=== PATIENT | female | born 1945 | race Caucasian/White ===

== ENCOUNTER 2016-12-25 17:13 | Observation (INO) | payer MEDICARE, BC ==
[~2016-12-25] VITALS: Ht 170.2 cm; Wt 70.0 kg
[~2016-12-25 17:13] MED LIST: DIAZ10TA PO; EFFE150C PO; FEXO180T PO; ISOS60 PO; LEVO112T2 PO; PLAV75TA PO; STOO100C PO; TAB-TAB PO
[2016-12-25 17:16] VITALS: BP 132/76; PULSE 75; RESP 14; TEMP 98; O2SAT 95
[2016-12-25 17:33] VITALS: O2SAT 96
[2016-12-25 17:43] VITALS: O2SAT 97
[2016-12-25] MEDS ORDERED: SODIUM CHLORIDE 0.9% FLUSH 10 ML FLUSH IVF PRN (17:45)
[2016-12-25 17:47] LABS: BASOPHIL % 0.1 % (0.0-2.0); EOSINOPHIL # 0.2 TH/MM3 (0-0.4); EOSINOPHIL % 5.2 % (0.0-4.0); HEMATOCRIT 37.1 % (35.0-46.0); HEMO FLAGS DIFF FINAL; LYMPH % 34.9 % (9.0-44.0); LYMPHOCYTE # 1.5 TH/MM3 (1.0-4.8); MEAN CELL VOLUME 84.2 FL (80.0-100.0); MEAN CORPUSCULAR HEMOGLOBIN 29.3 PG (27.0-34.0); MEAN CORPUSCULAR HGB CONC 34.8 % (32.0-36.0); MONO % 13.8 % (0.0-8.0); PLATELET COUNT 221 TH/MM3 (150-450); RED CELL DISTRIBUTION WIDTH 13.5 % (11.6-17.2); WHITE BLOOD COUNT 4.4 TH/MM3 (4.0-11.0)
--- NOTE | 2016-12-25 17:58 | RADRPT ---
EXAM DATE/TIME: 12/25/2016 17:40 [place] COMPARISON: No previous studies available for comparison. INDICATIONS : Abdominal pain after possible overdose. MEDICAL HISTORY : None. SURGICAL HISTORY : None. ENCOUNTER: Initial ACUITY: 1 day PAIN SCORE: 4/10 LOCATION: Bilateral abdomen FINDINGS: Supine view of the abdomen was performed. The abdominal bowel gas pattern is normal. No abnormal ma sses, calcifications, or organomegaly is seen. The osseous structures are unremarkable. CONCLUSION: Benign-appearing abdomen. Guillaume Samano MD on December 25, 2016 at 17:56 Board Certified Radiologist. This report was verified electronically.
[2016-12-25 18:00] LABS: APTT (PATIENT) 29.6 SEC (24.3-30.1); PROTHROMBIN TIME - PATIENT 11.2 SEC (9.8-11.6)
[2016-12-25 18:10] LABS: ANION GAP 10 MEQ/L (5-15)
--- NOTE | 2016-12-25 18:10 | PD ---
HPI Chief Complaint: OD/ Ingestion Time Seen by Provider: 17:24 Travel History International Travel<30 days: No Contact w/Intl Traveler<30days: No Traveled to known affect area: No History of Present Illness HPI 71yo F with PMH of depression here with suicidal attempt by overdosing on valium. Pt states she took about 202 pills of valium 10mg PO at 3pm today. However, pt is awake and talking and following commands. Pt's RR is 20 with normal CO2. O2 sat is 95% on RA. Pt placed on personnel monitor and end tidal CO2 continuous monitoring. No focal neurologic deficits. No signs of trauma. PFSH Past Medical History Anxiety: Yes Depression: Yes Cardiac Catheterization: Yes (4 STENTS) Cardiovascular Problems: Yes ([place]) High Cholesterol: Yes Coronary Artery Disease: Yes Diabetes: No Diminished Hearing: No Hypertension: Yes (GENERALLY NOT HIGH, UNMEDICATED) Musculoskeletal: Yes (L1 COMPRESSION FX-SACRUM FX- FROM FALL) Psychiatric: Yes Myocardial Infarction: Yes (AT 40 YO) Thyroid Disease: Yes ?: Not Menopausal: Yes : 3 Para: 3 Tubal Ligation: Yes (PRIOR TO HYSTERECTOMY) Past Surgical History Abdominal Surgery: Yes (HERNIA) Appendectomy: Yes Coronary Stent: Yes (X4 09/07/07, 12/24/07, 05/2009) Eye Surgery: Yes (CATARACTS) Gynecologic Surgery: Yes (TUBAL;HYSTERECTOMY) Hysterectomy: Yes (APPROX 20+ YEARS AGO) Other Surgery: Yes (UMBILICAL HERNIA REPAIR) Social History Alcohol Use: Yes ("VERY LITTLE, ONCE A MONTH") Tobacco Use: No Substance Use: No Allergies-Medications (Allergen,Severity, Reaction): Coded Allergies: Aspirin (Verified Allergy, Severe, facial edema, 12/25/16) Penicillin (Verified Allergy, Severe, facial and throat edema, 12/25/16) Bee Sting (Verified Adverse Reaction, Intermediate, Swelling, 12/25/16) Diclofenac (Verified Adverse Reaction, Intermediate, 12/25/16) Erythromycin (Verified Adverse Reaction, Intermediate, itch, 12/25/16) Ibuprofen (Verified Adverse Reaction, Intermediate, itch, 12/25/16) Tetracycline (Verified Adverse Reaction, Intermediate, itch, 12/25/16) Reported Meds & Prescriptions Reported Meds & Active Scripts Active Reported Diazepam 10 mg (Diazepam) 10 Mg Tab 1 Tab PO HS Multivitamin (Multivitamins) 1 Tab Tab 1 Tab PO DAILY Plavix (Clopidogrel Bisulfate) 75 Mg Tab 75 Mg PO DAILY Imdur 60 Mg (Isosorbide Mononitrate) 60 Mg Tabcr 90 Mg PO DAILY Fexofenadine Hcl (Fexofenadine HCl) 180 Mg Tab 180 Mg PO BID Levothyroxine 112 mcg (Levothyroxine Sodium) 112 Mcg Tab 112 Mcg PO DAILY Effexor Xr (Venlafaxine HCl) 150 Mg Cap 150 Mg PO DAILY Review of Systems Except as stated in HPI: all other systems reviewed are Neg Physical Exam Narrative GENERAL:71yo F not in distress. SKIN: Focused skin assessment warm/dry. HEAD: Atraumatic. Normocephalic. EYES: Pupils equal and round. No scleral icterus. No injection or drainage. ENT: No nasal bleeding or discharge. Mucous membranes pink and moist. NECK: Trachea midline. No JVD. CARDIOVASCULAR: Regular rate and rhythm. No murmur appreciated. RESPIRATORY: No accessory muscle use. Clear to auscultation. Breath sounds equal bilaterally. GASTROINTESTINAL: Abdomen soft, diffuse ttp. No rebound tenderness or guarding. MUSCULOSKELETAL: No obvious deformities. No clubbing. No cyanosis. No edema. NEUROLOGICAL: Awake and drowsy but easily arousable. No obvious cranial nerve deficits. Motor grossly within normal limits. Normal speech. PSYCHIATRIC: Appropriate mood and affect; insight and judgment normal. Data Data Last Documented VS Vital Signs Date Time Temp Pulse Resp B/P Pulse Ox O2 Delivery O2 Flow Rate FiO2 12/25/16 17:43 97 Nasal Cannula 2 12/25/16 17:16 98.0 75 14 132/76 Orders Electrocardiogram (12/25/16 ) Complete Blood Count With Diff (12/25/16 17:31) Comprehensive Metabolic Panel (12/25/16 17:31) Prothrombin Time / Inr (Pt) (12/25/16 17:31) Act Partial Throm Time (Ptt) (12/25/16 17:31) Urinalysis - C+S If Indicated (12/25/16 17:31) Blood Glucose (12/25/16 17:31) Iv Access Insert/Monitor (12/25/16 17:31) Ecg Monitoring (12/25/16 17:31) Oximetry (12/25/16 17:31) Sodium Chloride 0.9% Flush (Ns Flush) (12/25/16 17:45) Drug Screen, Random Urine (12/25/16 17:31) Alcohol (Ethanol) (12/25/16 17:31) Salicylates (Aspirin) (12/25/16 17:31) Tylenol (Acetaminophen) (12/25/16 17:31) Psych Screen (12/25/16 17:31) Abdomen, Kub Only (12/25/16 ) Potassium Chlor 20 Meq Premix (Kcl 20 Me (12/25/16 18:45) Admit Order (Ed Use Only) (12/25/16 19:16) Labs Laboratory Tests Test 12/25/16 12/25/16 17:35 18:40 White Blood Count 4.4 TH/MM3 Red Blood Count 4.40 MIL/MM3 Hemoglobin 12.9 GM/DL Hematocrit 37.1 % Mean Corpuscular Volume 84.2 FL Mean Corpuscular Hemoglobin 29.3 PG Mean Corpuscular Hemoglobin 34.8 % Concent Red Cell Distribution Width 13.5 % Platelet Count 221 TH/MM3 Mean Platelet Volume 8.8 FL Neutrophils (%) (Auto) 46.0 % Lymphocytes (%) (Auto) 34.9 % Monocytes (%) (Auto) 13.8 % Eosinophils (%) (Auto) 5.2 % Basophils (%) (Auto) 0.1 % Neutrophils # (Auto) 2.0 TH/MM3 Lymphocytes # (Auto) 1.5 TH/MM3 Monocytes # (Auto) 0.6 TH/MM3 Eosinophils # (Auto) 0.2 TH/MM3 Basophils # (Auto) 0.0 TH/MM3 CBC Comment DIFF FINAL Differential Comment Prothrombin Time 11.2 SEC Prothromb Time International 1.0 RATIO Ratio Activated Partial 29.6 SEC Thromboplast Time Sodium Level 134 MEQ/L Potassium Level 3.0 MEQ/L Chloride Level 100 MEQ/L Carbon Dioxide Level 24.1 MEQ/L Anion Gap 10 MEQ/L Blood Urea Nitrogen 5 MG/DL Creatinine 0.83 MG/DL Estimat Glomerular Filtration 68 ML/MIN Rate Random Glucose 101 MG/DL Calcium Level 7.7 MG/DL Total Bilirubin 0.7 MG/DL Aspartate Amino Transf 24 U/L (AST/SGOT) Alanine Aminotransferase 28 U/L (ALT/SGPT) Alkaline Phosphatase 108 U/L Total Protein 6.1 GM/DL Albumin 3.1 GM/DL Salicylates Level LESS THAN 1.7 MG/DL Acetaminophen Level 3.2 MCG/ML Ethyl Alcohol Level LESS THAN 3 MG/DL Urine Color LIGHT-YELLOW Urine Turbidity CLEAR Urine pH 6.0 Urine Specific [place] 1.002 Urine Protein NEG mg/dL Urine Glucose (UA) NEG mg/dL Urine Ketones NEG mg/dL Urine Occult Blood TRACE Urine Nitrite NEG Urine Bilirubin NEG Urine Urobilinogen LESS THAN 2.0 MG/DL Urine Leukocyte Esterase NEG Urine RBC 1 /hpf Urine WBC LESS THAN 1 /hpf Microscopic Urinalysis Comment CATH-CULT NOT IND Urine Opiates Screen NEG Urine Barbiturates Screen NEG Urine Amphetamines Screen NEG Urine Benzodiazepines Screen POS Urine Cocaine Screen NEG Urine Cannabinoids Screen NEG MDM Medical Decision Making Medical Screen Exam Complete: Yes Emergency Medical Condition: Yes Interpretation(s) EKG: NSR 69bpm. No ST segment elevation or depression. QTc 439ms. QRS narrow. Differential Diagnosis Valium overdose vs. coingestion Narrative Course 71yo F with intentional valium overdose. Clinically, she is well appearing and following commands. O2 sat has been 95-97% on RA and CO2 is normal. Discussed with poison control and he does not think she took that much. Recommend supportive care and flumazenil if needed but may cause withdrawal since she is chronic user. Labs reviewed, no leukocytosis. K: 3.0 replaced with 20mEq KCl IV. Alcohol, acetaminophen, salicylate negative. UA showed no leukocyte or nitrite. CXR showed benign appearing abdomen. Discussed with Dr. Carrington and accepted to her service for observation on telemetry. Pt is pending psych evaluation. Diagnosis Primary Impression: Overdose Qualified Code: T50.902A - Overdose, intentional self-harm, initial encounter Admitting Information Admitting Physician Requests: Observation Lucy Alcantara DO December 25, 2016 18:10
[2016-12-25 18:13] LABS: ACETAMINOPHEN 3.2 MCG/ML (10.0-30.0); ALKALINE PHOSPHATASE 108 U/L (45-117); ALT (GPT) 28 U/L (10-53); AST (GOT) 24 U/L (15-37); BICARBONATE 24.1 MEQ/L (21.0-32.0); BLOOD UREA NITROGEN 5 MG/DL (7-18); CHLORIDE 100 MEQ/L (98-107); GLOMERULAR FILTRATION RATE 68 ML/MIN (>89); SODIUM (NA) 134 MEQ/L (136-145); TOTAL BILIRUBIN ADULT 0.7 MG/DL (0.2-1.0)
[2016-12-25] MEDS ORDERED: POTASSIUM CHLOR 20 MEQ PREMIX 100 ML IV ONE (18:45)
[2016-12-25 19:01] LABS: BLOOD, URINE TRACE (NEG); COMMENT (UR) CATH-CULT NOT IND; CULTURE IF INDICATED CATH CULTURE NOT IND; GLUCOSE,URINE NEG (NEG); KETONE, URINE NEG (NEG); NITRITE,URINE NEG (NEG); URINE COLOR LIGHT-YELLOW (YELLW/STRAW)
[2016-12-25 19:27] LABS: AMPHETAMINE, URINE NEG (NEG); BARBITURATES, URINE NEG (NEG); COCAINE, URINE NEG (NEG)
[2016-12-25 19:28] VITALS: BP 128/72; PULSE 65; RESP 18; O2SAT 97
--- NOTE | 2016-12-25 20:11 | HHI.HP ---
HPI Service [facility] Primary Care Physician Germaine Barakat MD Admission Diagnosis Intentional overdose Diagnoses: (1) Intentional overdose of drug in tablet form Diagnosis: Principal (2) Suicide attempt Diagnosis: Principal (3) Dehydration Diagnosis: Principal (4) Hypokalemia Diagnosis: Principal Travel History International Travel<30 Days: No Contact w/Intl Traveler <30 Da: No Traveled to Known Affected Are: No History of Present Illness This is a 71-year-old female with a PMH of Anxiety, Depression, HTN, Hyperlipidemia, CAD and Chronic Back Pain who was brought to the ER by EMS under [place] Act after Suicide Attempt w/ Intentional Overdose. Per , pt reportedly took approx 200 pills of Valium 10mg earlier this afternoon, however he states he didn't actually see patient take them. On arrival, pt awake, conversive, normal O2 sat and normal vital signs. While in ER, pt states she took "a bottle and a half" of Valium in suicide attempt. CBC unremarkable. K+ 3.0, s/p replacement in ER. GFR 68. U/a negative. Urine Drug Screen positive for Benzo. Alcohol negative. Tylenol/Salicylate negative. Review of Systems Except as stated in HPI: all other systems reviewed are Neg ROS: 14 point review of systems otherwise negative. Past Family Social History Past Medical History PMH: Anxiety, Depression, HTN, Hyperlipidemia, CAD and Chronic Back Pain Past Surgical History PAST SURGICAL HISTORY: Hysterectomy, Hernia Repair, Appendectomy, Cataract Surgery Allergies: Coded Allergies: Aspirin (Verified Allergy, Severe, facial edema, 12/25/16) Penicillin (Verified Allergy, Severe, facial and throat edema, 12/25/16) Bee Sting (Verified Adverse Reaction, Intermediate, Swelling, 12/25/16) Diclofenac (Verified Adverse Reaction, Intermediate, 12/25/16) Erythromycin (Verified Adverse Reaction, Intermediate, itch, 12/25/16) Ibuprofen (Verified Adverse Reaction, Intermediate, itch, 12/25/16) Tetracycline (Verified Adverse Reaction, Intermediate, itch, 12/25/16) Family History PAST FAMILY HISTORY: Reviewed. No h/o DM or CAD Social History PAST SOCIAL HISTORY: Negative for alcohol, tobacco or drugs. Physical Exam Vital Signs Vital Signs Date Time Temp Pulse Resp B/P Pulse Ox O2 Delivery O2 Flow Rate FiO2 12/25/16 19:28 65 18 128/72 97 Nasal Cannula 2 12/25/16 17:43 97 Nasal Cannula 2 12/25/16 17:33 96 12/25/16 17:23 97 Nasal Cannula 2 12/25/16 17:16 98.0 75 14 132/76 95 Physical Exam PE: GENERAL: Middle-aged white female in no acute distress. Drowsy but awake, easily arousable, answering questions HEENT: PERRLA, EOMI. No scleral icterus or conjunctival pallor. No lid lag or facial droop. CARDIOVASCULAR: Regular rate and rhythm. No obvious murmurs to auscultation. No chest tenderness to palpation. RESPIRATORY: No obvious rhonchi or wheezing. Clear to auscultation. Breath sounds equal bilaterally. GASTROINTESTINAL: Abdomen soft, non-tender, nondistended. BS normal. MUSCULOSKELETAL: Extremities without clubbing, cyanosis, or edema. No obvious deformities. NEUROLOGICAL: Awake, alert and oriented x4. No focal neurologic deficits. Moving both upper and lower extremities spontaneously. Laboratory Laboratory Tests Test 12/25/16 12/25/16 17:35 18:40 White Blood Count 4.4 Red Blood Count 4.40 Hemoglobin 12.9 Hematocrit 37.1 Mean Corpuscular Volume 84.2 Mean Corpuscular Hemoglobin 29.3 Mean Corpuscular Hemoglobin 34.8 Concent Red Cell Distribution Width 13.5 Platelet Count 221 Mean Platelet Volume 8.8 Neutrophils (%) (Auto) 46.0 Lymphocytes (%) (Auto) 34.9 Monocytes (%) (Auto) 13.8 Eosinophils (%) (Auto) 5.2 Basophils (%) (Auto) 0.1 Neutrophils # (Auto) 2.0 Lymphocytes # (Auto) 1.5 Monocytes # (Auto) 0.6 Eosinophils # (Auto) 0.2 Basophils # (Auto) 0.0 CBC Comment DIFF FINAL Differential Comment Prothrombin Time 11.2 Prothromb Time International 1.0 Ratio Activated Partial 29.6 Thromboplast Time Sodium Level 134 Potassium Level 3.0 Chloride Level 100 Carbon Dioxide Level 24.1 Anion Gap 10 Blood Urea Nitrogen 5 Creatinine 0.83 Estimat Glomerular Filtration 68 Rate Random Glucose 101 Calcium Level 7.7 Total Bilirubin 0.7 Aspartate Amino Transf 24 (AST/SGOT) Alanine Aminotransferase 28 (ALT/SGPT) Alkaline Phosphatase 108 Total Protein 6.1 Albumin 3.1 Salicylates Level LESS THAN 1.7 Acetaminophen Level 3.2 Ethyl Alcohol Level LESS THAN 3 Urine Color LIGHT-YELLOW Urine Turbidity CLEAR Urine pH 6.0 Urine Specific [place] 1.002 Urine Protein NEG Urine Glucose (UA) NEG Urine Ketones NEG Urine Occult Blood TRACE Urine Nitrite NEG Urine Bilirubin NEG Urine Urobilinogen LESS THAN 2.0 Urine Leukocyte Esterase NEG Urine RBC 1 Urine WBC LESS THAN 1 Microscopic Urinalysis Comment CATH-CULT NOT IND Urine Opiates Screen NEG Urine Barbiturates Screen NEG Urine Amphetamines Screen NEG Urine Benzodiazepines Screen POS Urine Cocaine Screen NEG Urine Cannabinoids Screen NEG Result Diagram: 12/25/16173412/25/161734 Assessment and Plan Problem List: (1) Intentional overdose of drug in tablet form ICD Code: T50.902A Status: Acute (2) Suicide attempt ICD Code: T14.91 Status: Acute (3) Dehydration ICD Code: E86.0 Status: Acute (4) Hypokalemia ICD Code: E87.6 Status: Acute Assessment and Plan A/P: 1. Intentional Overdose: reports pt took approx 200 tablets of Valium 10mg earlier this afternoon, however he did not witness ingestion. Highly unlikely based on pt's presentation, she is awake/alert, conversive, normal vitals and normal O2 sat. Admit for Observation, telemetry, Neuro checks q4h. 2. Suicide Attempt: h/o Anxiety/Depression, reports intentional ingestion of Valium in suicide attempt, currently under [place] Act. Sitter. Consult Psych for further eval. 3. Dehydration: GFR 68, U/a negative, IVF for hydration, repeat labs in am. 4. Hypokalemia: K+ 3.0, s/p replacement in ER, will recheck in am and replace as needed. 5. DVT Prophylaxis: SCD/Teds. 6. Social work for d/c planning as needed. 7. Case discussed w/ ER physician at length. Faviola Carrington MD December 25, 2016 20:11
[2016-12-25] MEDS ORDERED: BISACODYL 10 MG SUPP RECTAL PRN (20:15)
[2016-12-25] MEDS ORDERED: ONDANSETRON HCL 4 MG/2 ML VIAL IVP PRN (20:15)
[2016-12-25] MEDS ORDERED: ACETAMINOPHEN 325 MG TAB PO PRN (20:15)
[2016-12-25] MEDS ORDERED: SODIUM CHLORIDE 0.9% FLUSH 10 ML FLUSH IV FLUSH PRN (20:15)
[2016-12-25] MEDS: SODIUM CHLOR 0.9% 1000 ML INJ 1,000 ML IV SCH (20:40)
[2016-12-25] MEDS: SODIUM CHLORIDE 0.9% FLUSH 10 ML FLUSH IV FLUSH SCH (21:00)
[2016-12-25 21:47] VITALS: BP 163/86; PULSE 75; RESP 18; O2SAT 99
[2016-12-25 22:00] VITALS: PULSE 69
[2016-12-26] MEDS ORDERED: FAMOTIDINE 20 MG TAB PO ONE (00:30)
[2016-12-26 03:20] VITALS: BP 127/68; PULSE 60; RESP 16; TEMP 98.3; O2SAT 91
[2016-12-26 05:54] LABS: AUTOMATED NEUTROPHIL # 1.7 TH/MM3 (1.8-7.7); BASOPHIL % 0.4 % (0.0-2.0); EOSINOPHIL # 0.2 TH/MM3 (0-0.4); HEMATOCRIT 39.6 % (35.0-46.0); HEMO FLAGS DIFF FINAL; LYMPH % 36.5 % (9.0-44.0); LYMPHOCYTE # 1.5 TH/MM3 (1.0-4.8); MEAN CELL VOLUME 84.7 FL (80.0-100.0); MEAN CORPUSCULAR HEMOGLOBIN 29.7 PG (27.0-34.0); MONO % 15.7 % (0.0-8.0); NEUT % 42.4 % (16.0-70.0); PLATELET COUNT 228 TH/MM3 (150-450); RED BLOOD COUNT 4.68 MIL/MM3 (4.00-5.30); RED CELL DISTRIBUTION WIDTH 13.7 % (11.6-17.2)
[2016-12-26 06:31] LABS: ALT (GPT) 30 U/L (10-53); ANION GAP 7 MEQ/L (5-15); AST (GOT) 26 U/L (15-37); BICARBONATE 25.7 MEQ/L (21.0-32.0); BLOOD UREA NITROGEN 5 MG/DL (7-18); CHLORIDE 107 MEQ/L (98-107); GLOMERULAR FILTRATION RATE 71 ML/MIN (>89); POTASSIUM 3.3 MEQ/L (3.5-5.1); SODIUM (NA) 140 MEQ/L (136-145)
[2016-12-26 06:33] LABS: ALKALINE PHOSPHATASE 108 U/L (45-117); TOTAL BILIRUBIN ADULT 0.6 MG/DL (0.2-1.0)
[2016-12-26] MEDS: SODIUM CHLOR 0.9% 1000 ML INJ 1,000 ML IV SCH ×2 (07:19→20:41)
[2016-12-26 08:04] VITALS: BP 128/63; PULSE 68; RESP 18; TEMP 97.7; O2SAT 97
[2016-12-26] MEDS ORDERED: DIAZ10TA PO (08:46)
[2016-12-26] MEDS ORDERED: DIAZ2TAB PO (08:46)
[2016-12-26] MEDS ORDERED: FEXO180T PO (08:46)
[2016-12-26] MEDS ORDERED: PLAV75TA29 PO (08:46)
[2016-12-26] MEDS ORDERED: POTASSIUM CHLORIDE 20 MEQ CONTROLLED RELEASE TAB PO ONE (09:00)
[2016-12-26] MEDS ORDERED: VENL150C39 PO (09:13)
[2016-12-26] MEDS ORDERED: NITR1SUB3 SL (09:13)
[2016-12-26] MEDS ORDERED: ISOS60TA PO ×2 (09:13→10:32)
[2016-12-26] MEDS ORDERED: ISOS30TA3 PO ×2 (09:13→10:33)
[2016-12-26] MEDS ORDERED: MULTTAB67 PO (09:13)
[2016-12-26] MEDS ORDERED: LEVO100T5 PO (09:13)
[2016-12-26] MEDS ORDERED: NYST1000 SWISH-SWAL (09:15)
[2016-12-26] MEDS: SODIUM CHLORIDE 0.9% FLUSH 10 ML FLUSH IV FLUSH SCH ×2 (09:46→20:40)
[2016-12-26] MEDS: FAMOTIDINE 20 MG TAB PO SCH ×2 (09:46→20:41)
--- NOTE | 2016-12-26 10:20 | HHI.PR ---
Subjective Remarks Follow up for intentional overdose with suicide attempt. Patient very drowsy this morning however does awaken for conversation. at bedside, confirms all the tablets of Valium were missing from the 2 bottles which contained ~170 in one bottle, and ~30 in the other. The patient admits to feeling depressed recently but does not further elaborate. The patient complains of multiple episodes of diarrhea overnight and mild diffuse abdominal pain described as cramping. The patient and explain that the patient was on Clindamycin for a dental abscess at the end of November then subsequently developed abdominal problems that she has not fully recovered from. She reports diffuse abdominal "soreness" and cramping over the past few weeks, with decreased appetite, and occasional nonbloody diarrhea. No nausea/ vomiting. The diarrhea overnight is not new for her but it is worse than it has been. She saw Dr. Tucker for the first time last week who ordered some labs and wanted to see her back in 3 weeks. She has been taking imodium at home without any relief. She is not aware if she was ever checked for Cdiff and has no hx of Cdiff. Currently the patient is hungry and wants to try to eat. She has no other medical complaints. Objective Vitals Vital Signs Date Time Temp Pulse Resp B/P Pulse Ox O2 Delivery O2 Flow Rate FiO2 12/26/16 08:04 97.7 68 18 128/63 97 12/26/16 03:20 98.3 60 16 127/68 91 12/25/16 22:00 69 12/25/16 21:47 75 18 163/86 99 12/25/16 19:28 65 18 128/72 97 Nasal Cannula 2 12/25/16 17:43 97 Nasal Cannula 2 12/25/16 17:33 96 12/25/16 17:23 97 Nasal Cannula 2 12/25/16 17:16 98.0 75 14 132/76 95 Result Diagram: 12/26/16 0536 12/26/16 0536 Imaging Last Impressions Abdomen X-Ray 12/25/16 0000 Signed Impressions: Service Date/Time: Sunday, December 25, 2016 17:40 - CONCLUSION: Benign-appearing abdomen. Guillaume Samano MD Objective Remarks GENERAL: Well-nourished, well-developed female patient in NAD. Drowsy. SKIN: Warm and dry. No rash. HEENT: Normocephalic. Atraumatic.Pupils equal and round. Mucous membranes pink and moist. NECK: Supple. Trachea midline. CARDIOVASCULAR: Regular rate and rhythm. S1, S2 noted. No murmur appreciated. RESPIRATORY: No accessory muscle use. Clear to auscultation. Breath sounds equal bilaterally. GASTROINTESTINAL: Abdomen soft, nondistended, mild diffuse TTP. Normoactive bowel sounds x4. MUSCULOSKELETAL: No obvious deformities. Extremities without clubbing, cyanosis , or edema. NEUROLOGICAL: Awake and alert. No obvious cranial nerve deficits. Motor grossly within normal limits. Normal speech. PSYCHIATRIC: Depressed mood; insight and judgment normal. Medications and IVs Current Medications Medications (Trade) Dose Ordered Sig/Ammon Route Start Time Stop Time Status Last Admin (NS 1000 ml Inj) 1,000 ml @ 100 mls/hr Q10H IV 12/25/16 20:10 12/26/16 07:19 (NS Flush) 2 ml UNSCH PRN IV FLUSH 12/25/16 20:15 (NS Flush) 2 ml BID IV FLUSH 12/25/16 21:00 12/26/16 09:46 (Zofran Inj) 4 mg Q6H PRN IVP 12/25/16 20:15 (Dulcolax Supp) 10 mg DAILY PRN RECTAL 12/25/16 20:15 (Tylenol) 650 mg Q6H PRN PO 12/25/16 20:15 (Pepcid) 20 mg BID PO 12/26/16 09:00 12/26/16 09:46 A/P Problem List: (1) Intentional overdose of drug in tablet form ICD Code: T50.902A Status: Acute (2) Suicide attempt ICD Code: T14.91 Status: Acute (3) Dehydration ICD Code: E86.0 Status: Acute (4) Hypokalemia ICD Code: E87.6 Status: Acute Assessment and Plan 71-year-old female with a PMH of Anxiety, Depression, HTN, Hyperlipidemia, CAD and Chronic Back Pain who was brought to the ER by EMS under [place] Act after Suicide Attempt w/ Intentional Overdose. Per , pt reportedly took approx 200 pills of Valium 10mg earlier this afternoon, however he states he didn't actually see patient take them. Intentional Overdose: reports pt took approx 200 tablets of Valium 10mg earlier this afternoon, however he did not witness ingestion. Highly unlikely based on pt's presentation, she is awake/alert, conversive, normal vitals and normal O2 sat. Admitted for Observation, monitor on telemetry, Neuro checks q4h. Suicide Attempt: h/o Anxiety/Depression, reports intentional ingestion of Valium in suicide attempt, currently under [place] Act. Sitter. Consult Psych for further eval. Diarrhea/Abdominal Pain: ongoing x3 weeks since taking Clindamycin abx as outpatient for dental infection. Abdominal Xray images reviewed, shows benign appearing abdomen. Check Cdiff and stool cultures. Continue IVF. Antiemetics prn. Dehydration: GFR 68, suspect secondary to recent diarrhea. U/a negative. Give IVF for hydration, repeat labs today show minimal improvement. Continue to monitor. Hypokalemia: K+ 3.0, s/p replacement in ER. Repeat K 3.3, given additional KCl replacement. Repeat BMP in am. CAD: chronic, continue patient's plavix and imdur. Monitor on telemetry. DVT Prophylaxis: SCD/Teds. Discharge Planning Will likely medically clear tomorrow if patient is more awake, alert, and if GI symptoms improve. Awaiting psychiatric evaluation. Akua Delatorre PA-C December 26, 2016 10:20
[2016-12-26] MEDS: CLOPIDOGREL 75 MG TAB PO SCH (11:23)
[2016-12-26] MEDS: LORATADINE 10 MG TAB PO SCH (11:25)
[2016-12-26] MEDS: ISOSORBIDE MONONITRATE 30 MG TAB PO SCH (11:26)
[2016-12-26] MEDS: VENLAFAXINE HCL XR 75 MG CAP PO SCH (11:26)
[2016-12-26 11:45] VITALS: BP 135/61; PULSE 65; RESP 18; TEMP 98.4; O2SAT 93
--- NOTE | 2016-12-26 13:10 | EKG ---
Date Performed: 12/25/2016 Time Performed: 17:25:09 PTAGE: 71 years EKG: Sinus rhythm LOW QRS VOLTAGE IN PRECORDIAL LEADS NONSPECIFIC ST & T-WAVE ABNORMALITY BORDERLINE ECG Compared to p rior tracing no significant change PREVIOUS TRACING : 05/06/2016 10.58 DOCTOR: Saul Gutierrez Interpretating Date/Time 12/26/2016 13:09:06
--- NOTE | 2016-12-26 13:33 | PD.CONS ---
Provisional Diagnosis Admission Date December 25, 2016 at 19:17 [place] I. Major depressive disorder, recurrent, severe, without psychosis [place] II. Deferred [place] III. CAD, hypothyroidism History of Present Illness Service Psychiatry Consult Requested By Primary Care Physician Germaine Barakat MD HPI The patient is a 71-year-old woman, domicile with her in [place], retired, with psychiatric history of depression, anxiety, about 4 previous psychiatric hospitalizations, last hospitalization was here at [facility] in 2010 under the care of Dr. Lofton, documentation was reviewed, 1 previous suicide attempt by overdosing with Tylenol, active outpatient care with Dr. Landaverde , she has been in Effexor 150 mg, Valium 10 mg daily, medical history of HTN, Hyperlipidemia, CAD and Chronic Back Pain who was brought to the ER by EMS under [place] Act after Suicide Attempt w/ Intentional Overdose. Per , pt reportedly took approx 200 pills of Valium 10mg earlier this afternoon, however he states he didn't actually see patient take them. On arrival, pt awake, conversive, normal O2 sat and normal vital signs. While in ER, pt states she took "a bottle and a half" of Valium in suicide attempt. CBC unremarkable. K+ 3.0, s/p replacement in ER. GFR 68. U/a negative. Urine Drug Screen positive for Benzo. Alcohol negative. Tylenol/Salicylate negative. On psychiatric evaluation today patient is too sedated to offer any meaningful information for the psychiatric assessment. However, her Stu Pelaez, at bedside was able to provide very useful collateral information. He says that the patient overdosed seriously with approximately 200 pills of Valium. He says that he controls her medication and she was recently prescribed with 130 pills of Valium , plus she had more than 30 left in another bottle. He doesn't think that she is abusing her medication, and she takes them as prescribed. He says that the patient has been depressed in the last months, he cannot identify a reason for this depression. He says that she has been very sad, pessimistic, melancholic, catastrophic. He cannot identify an acute stressor or a reason for the patient to be this way. He says that she recently has been repeating that she lost anton in the future. Review of Systems ROS Limitations: Uncooperative Past Family Social History Coded Allergies: Aspirin (Verified Allergy, Severe, facial edema, 12/25/16) Penicillin (Verified Allergy, Severe, facial and throat edema, 12/25/16) Bee Sting (Verified Adverse Reaction, Intermediate, Swelling, 12/25/16) Diclofenac (Verified Adverse Reaction, Intermediate, 12/25/16) Erythromycin (Verified Adverse Reaction, Intermediate, itch, 12/25/16) Ibuprofen (Verified Adverse Reaction, Intermediate, itch, 12/25/16) Tetracycline (Verified Adverse Reaction, Intermediate, itch, 12/25/16) Reported Medications Isosorbide Mononitrate ER 30 Mg Taber90 Mg PO DAILY #30 TAB Ref 0 12/26/16 Nystatin Liq 100,000 unit/ml Susp5 Ml SWISH-SWAL QID Ref 0 12/26/16 Nitroglycerin SL 0.4 Mg Subl0.4 Mg SL DIRECTED PRN (CHEST PAIN) #100 TAB.SL Ref 0 ONE TABLET UNDER THE TONGUE NEEDED FOR CHEST PAIN, MAY REPEAT EVERY FIVE MINUTES FOR A TOTAL OF 3 DOSES OR CALL 911 IF NO RELIEF 12/26/16 Venlafaxine ER 24 HR 150 Mg Xtq145 Mg PO DAILY #30 CAP Ref 0 12/26/16 Multiple Vitamin 1 Tab1 Tab PO DAILY Ref 0 12/26/16 Levothyroxine 100 Mcg Gbf414 Mcg PO DAILY #30 TAB Ref 0 12/26/16 Fexofenadine 180 Mg Sbt544 Mg PO DAILY #30 TAB Ref 0 12/26/16 Clopidogrel (Plavix)75 Mg Tab75 Mg PO DAILY #30 TAB Ref 0 12/26/16 Diazepam 10 Mg Tab10 Mg PO HS PRN (SLEEP) Ref 0 12/26/16 Diazepam 2 Mg Tab2 Mg PO BID PRN (ANXIETY) Ref 0 12/26/16 Discontinued Reported Medications Docusate Sodium (Colace)100 Mg Fmk206 Mg PO BID 05/06/16 Current Medications Medications (Trade) Dose Ordered Sig/Ammon Route Start Time Stop Time Status Last Admin (NS 1000 ml Inj) 1,000 ml @ 100 mls/hr Q10H IV 12/25/16 20:10 12/26/16 07:19 (NS Flush) 2 ml UNSCH PRN IV FLUSH 12/25/16 20:15 (NS Flush) 2 ml BID IV FLUSH 12/25/16 21:00 12/26/16 09:46 (Zofran Inj) 4 mg Q6H PRN IVP 12/25/16 20:15 (Dulcolax Supp) 10 mg DAILY PRN RECTAL 12/25/16 20:15 (Tylenol) 650 mg Q6H PRN PO 12/25/16 20:15 (Pepcid) 20 mg BID PO 12/26/16 09:00 12/26/16 09:46 (Plavix) 75 mg DAILY PO 12/26/16 10:45 12/26/16 11:23 (Imdur) 90 mg DAILY@07 PO 12/26/16 10:45 12/26/16 11:26 (Synthroid) 100 mcg DAILY@06 PO 12/27/16 06:00 (Mycostatin Liq) 5 ml QID SWISH-SWAL 12/26/16 13:00 (Effexor Xr) 150 mg DAILY PO 12/26/16 10:45 12/26/16 11:26 (Claritin) 10 mg DAILY PO 12/26/16 10:45 12/26/16 11:25 Family History Her father was an alcoholic Social History Patient was born and raised in [place], she lives in [place] with , she is retired, she has 3 kids, she used to be a teacher for some time, 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 2) Family support Physical Exam On physical exam patient is sedated, mumbling words, Vital Signs Vital Signs Date Time Temp Pulse Resp B/P Pulse Ox O2 Delivery O2 Flow Rate FiO2 12/26/16 11:45 98.4 65 18 135/61 93 12/25/16 19:28 Nasal Cannula 2 Lab Results Toxicology positive for benzodiazepines BAL negative Mental Status Examination Appearance woman, age appearing, [facility], good hygiene, sedated, non- cooperative Assessment & Plan Problem List: (1) Major depressive disorder, recurrent severe without psychotic features Assessment & Plan: On psychiatric evaluation patient is too sedated to cooperate with meaningful information for the psychiatric assessment. However her uses for collateral information reports the patient overdosed with over 100 pills of diazepam with the intention to . As per patient has been progressively and increasingly depressed, with persistent hopelessness , catastrophic thinking, generalized pessimism. The most important step right now is to continue medical aggressive treatment and to stabilize the patient medically. But, patient will need psychiatric hospitalization for stabilization and safety. Please keep one-to-one sitter in medical floor. Patient could be also transfer to med psych unit, if available beds. No psychotropics at this moment. [facility] protocol for potential benzodiazepine withdrawal. ICD Code: F33.2 Assessment & Plan Estimated LOS: days Dandy Rodrigez MD December 26, 2016 13:33
[2016-12-26] MEDS: NYSTATIN SUSP 500,000 U/5 ML CUP SWISH-SWAL SCH ×3 (14:28→20:41)
[2016-12-26 15:07] VITALS: BP 125/72; PULSE 71; RESP 16; TEMP 96.8; O2SAT 98
[2016-12-26 20:00] VITALS: PULSE 78
[2016-12-26 21:01] VITALS: BP 124/68; PULSE 67; RESP 18; TEMP 97.8; O2SAT 98
[2016-12-27 00:02] VITALS: BP 133/63; PULSE 61; RESP 18; TEMP 98.4; O2SAT 99
[2016-12-27 04:34] VITALS: BP 128/66; PULSE 63; RESP 18; TEMP 98.5; O2SAT 100
[2016-12-27] MEDS ORDERED: LEVOTHYROXINE SODIUM 100 MCG TAB PO SCH (06:00)
[2016-12-27] MEDS: SODIUM CHLOR 0.9% 1000 ML INJ 1,000 ML IV SCH ×2 (06:10→14:45)
[2016-12-27] MEDS: ISOSORBIDE MONONITRATE 30 MG TAB PO SCH (06:12)
[2016-12-27 07:55] LABS: BICARBONATE 24.6 MEQ/L (21.0-32.0); POTASSIUM 3.7 MEQ/L (3.5-5.1)
[2016-12-27 08:34] VITALS: BP 165/80; PULSE 62; RESP 18; TEMP 98.8; O2SAT 97
[2016-12-27] MEDS: FAMOTIDINE 20 MG TAB PO SCH ×2 (09:38→21:00)
[2016-12-27] MEDS: SODIUM CHLORIDE 0.9% FLUSH 10 ML FLUSH IV FLUSH SCH ×2 (09:38→21:00)
[2016-12-27] MEDS: LORATADINE 10 MG TAB PO SCH (09:39)
[2016-12-27] MEDS: NYSTATIN SUSP 500,000 U/5 ML CUP SWISH-SWAL SCH ×4 (09:39→21:00)
[2016-12-27] MEDS: VENLAFAXINE HCL XR 75 MG CAP PO SCH (09:39)
[2016-12-27] MEDS: CLOPIDOGREL 75 MG TAB PO SCH (09:39)
--- NOTE | 2016-12-27 09:52 | HHI.PR ---
Subjective Remarks Follow-up for intentional benzodiazepine overdose. The patient is seen with , RN, and sitter at bedside. The patient is seen eating breakfast. She has no acute complaints today. She denies any nausea. She has small normal BM yesterday. She denies any chest pain or shortness of breath. She's been able to ambulate to the bedside commode. Objective Vitals Vital Signs Date Time Temp Pulse Resp B/P Pulse Ox O2 Delivery O2 Flow Rate FiO2 12/27/16 08:34 98.8 62 18 165/80 97 12/27/16 04:34 98.5 63 18 128/66 100 12/27/16 00:02 98.4 61 18 133/63 99 12/26/16 21:01 97.8 67 18 124/68 98 12/26/16 20:00 78 12/26/16 15:07 96.8 71 16 125/72 98 12/26/16 11:45 98.4 65 18 135/61 93 I/O 12/26/16 12/26/16 12/26/16 12/27/16 12/27/16 12/27/16 07:00 15:00 23:00 07:00 15:00 23:00 # Voids 1 Result Diagram: 12/26/16 0536 12/27/16 0700 Imaging Last Impressions Abdomen X-Ray 12/25/16 0000 Signed Impressions: Service Date/Time: Sunday, December 25, 2016 17:40 - CONCLUSION: Benign-appearing abdomen. Guillaume Samano MD Objective Remarks GENERAL: Well-developed well-nourished. In no acute distress. SKIN: Warm and dry. No lesions noted. HEENT: Normocephalic. Pupils equal and round. Mucous membranes pink and moist. CARDIOVASCULAR: Regular rate and rhythm. No murmur appreciated. RESPIRATORY: No accessory muscle use. Clear to auscultation. Breath sounds equal bilaterally. GASTROINTESTINAL: Abdomen soft, non-tender, nondistended. Bowel sounds x4. MUSCULOSKELETAL: No obvious deformities. No clubbing or cyanosis. No edema. NEUROLOGICAL: Awake and alert. No focal neurological deficits. Moves upper and lower extremities spontaneously. Normal speech. PSYCHIATRIC: Labile, depressed mood and affect A/P Problem List: (1) Intentional overdose of drug in tablet form ICD Code: T50.902A Status: Acute (2) Suicide attempt ICD Code: T14.91 Status: Acute (3) Hypokalemia ICD Code: E87.6 Status: Resolved Assessment and Plan 71-year-old female with a PMH of Anxiety, Depression, HTN, Hyperlipidemia, CAD and Chronic Back Pain who was brought to the ER by EMS under [place] Act after Suicide Attempt w/ Intentional Overdose. Per , pt reportedly took approx 200 pills of Valium 10mg prior to admission, however he states he didn't actually see patient take them. Intentional Overdose: reports pt took approx 200 tablets of Valium 10mg , however he did not witness ingestion. Highly unlikely based on pt's presentation, she is awake/alert, conversive, normal vitals and normal O2 sat. Admitted for Observation, monitor on telemetry, Neuro checks q4h. Suicide Attempt: h/o Anxiety/Depression, reports intentional ingestion of Valium in suicide attempt, currently under [place] Act. Sitter. Consulted Psych who recommended inpatient psychiatry when medically cleared. Diarrhea/Abdominal Pain: ongoing x3 weeks since taking Clindamycin abx as outpatient for dental infection. Abdominal Xray reviewed, shows benign appearing abdomen. No further diarrhea, unable to check stool studies. Tolerating oral intake. Supportive care. Dehydration: GFR 68, suspect secondary to recent diarrhea. U/a negative. Given IVF for hydration. Hypokalemia: Replaced orally and now K+ 3.7. Resolved. CAD: chronic, continue patient's plavix and imdur. Monitor on telemetry. DVT Prophylaxis: SCD/Teds. Discharge Planning The patient is medically clear for discharge to inpatient psychiatry. Addendum 1200: Reportedly outpatient laboratory told the patient's that she is positive for C. difficile. Discussed with RN, we will obtain those results. Start on course of Flagyl. Patient is cleared for med psych. Cale Tao December 27, 2016 09:52
[2016-12-27] MEDS ORDERED: METR-1 PO (12:32)
[2016-12-27] MEDS ORDERED: DICYCLOMINE HCL 20 MG TAB PO PRN (14:30)
[2016-12-27] MEDS: metroNIDAZOLE 500 MG TAB PO SCH ×2 (14:42→21:00)
[2016-12-27 16:14] VITALS: BP 146/70; PULSE 67; RESP 18; TEMP 97.8; O2SAT 97
[2016-12-27 20:14] VITALS: BP 141/67; PULSE 67; RESP 17; TEMP 97.9; O2SAT 98
== END 2016-12-27 21:35 ==
LOC: NEPC 17:13 → NEDA 19:17 → NEPHCDU 21:02 → NEDA 12-27 00:48 → NEPHCDU 12-27 00:48
PROVIDERS: ADMIT Internal Medicine; ATTEND Internal Medicine
DX: T42.4X2A Poisoning by benzodiazepines, intentional self-harm, initial encounter (principal); E86.0 Dehydration; E87.6 Hypokalemia; I25.10 Atherosclerotic heart disease of native coronary artery without angina pectoris; F33.2 Major depressive disorder, recurrent severe without psychotic features; F41.9 Anxiety disorder, unspecified; I25.2 Old myocardial infarction; E78.00 Pure hypercholesterolemia, unspecified; I10 Essential (primary) hypertension; E78.5 Hyperlipidemia, unspecified; G89.29 Other chronic pain; M54.9 Dorsalgia, unspecified; R19.7 Diarrhea, unspecified; Z79.02 Long term (current) use of antithrombotics/antiplatelets; Z91.030 Bee allergy status; Z88.1 Allergy status to other antibiotic agents; Z88.6 Allergy status to analgesic agent; Z88.0 Allergy status to penicillin; Z95.5 Presence of coronary angioplasty implant and graft
CPT/HCPCS: 74000; 80048; 80053; 80307; 81001; 83735; 84443; 85025; 85610; 85730; 93005; 99285; G0378; J3480; J7030

== ENCOUNTER 2016-12-27 21:40 | Inpatient (IN) | payer MEDICARE, BC ==
[~2016-12-27] VITALS: Ht 162.6 cm; Wt 64.3 kg
[~2016-12-27 21:40] MED LIST changes: +DIAZ2TAB PO; -EFFE150C PO; +ISOS30TA3 PO; -ISOS60 PO; +LEVO100T5 PO; -LEVO112T2 PO; +METR-1 PO; +MULTTAB67 PO; +NITR1SUB3 SL; +NYST1000 SWISH-SWAL; -PLAV75TA PO; +PLAV75TA29 PO; -STOO100C PO; -TAB-TAB PO; +VENL150C39 PO
[2016-12-27 22:04] VITALS: BP 142/74; PULSE 66; RESP 18; TEMP 97.3; O2SAT 98
[2016-12-27 23:40] VITALS: BP 142/74; PULSE 66; RESP 18; TEMP 98
[2016-12-28 06:20] VITALS: BP 138/74; PULSE 75; RESP 18; TEMP 97.8; O2SAT 99
[2016-12-28 07:29] LABS: ANION GAP 9 MEQ/L (5-15); BICARBONATE 26.9 MEQ/L (21.0-32.0); BLOOD UREA NITROGEN 6 MG/DL (7-18); CHLORIDE 110 MEQ/L (98-107); GLOMERULAR FILTRATION RATE 68 ML/MIN (>89); POTASSIUM 3.6 MEQ/L (3.5-5.1); SODIUM (NA) 146 MEQ/L (136-145)
[2016-12-28 07:30] LABS: LDL CHOLESTEROL 148 MG/DL (0-99)
[2016-12-28] MEDS: LEVOTHYROXINE SODIUM 100 MCG TAB PO SCH (09:45)
[2016-12-28] MEDS ORDERED: LORazepam 2 MG TAB PO STA (11:17)
[2016-12-28] MEDS: VENLAFAXINE HCL XR 75 MG CAP PO SCH (11:23)
[2016-12-28] MEDS: MULTIVITAMIN TAB PO SCH (11:23)
[2016-12-28] MEDS: CLOPIDOGREL 75 MG TAB PO SCH (11:24)
[2016-12-28 12:39] LABS: HEMATOCRIT 38.4 % (35.0-46.0); PLATELET COUNT 253 TH/MM3 (150-450); REVIEW FLAG FINAL
--- NOTE | 2016-12-28 13:53 | PD.CONS ---
HPI Service [facility] Hospitalists Consult Requested By Psychiatric services Reason for Consult Medical management Primary Care Physician Germaine Barakat MD Diagnoses: History of Present Illness Written by Delia Pickering PA-C acting as scribe for Dr. Oswald on 12/28/16 at 13:34. 71-year-old female with a PMHX of Anxiety, Depression, HTN, Hyperlipidemia, CAD s/p previous CABG, Right CEA and Chronic Back Pain who was brought to the ER by EMS under [place] Act after Suicide Attempt w/ Intentional Overdose by taking 200 pills of Valium 10mg who has been admitted to psychiatric unit. Hospitalist services have been requested to assist with medical management. Per , pt reportedly took approx 200 pills of Valium 10mg, however he states he didn't actually see patient take them. Her hospital course has been unremarkable with normal O2 sats and normal vital signs. Additionally, she has had no appreciable lethargy or somnolence. Urine Drug Screen was positive for Benzo. Alcohol negative. Tylenol/Salicylate negative. Patient seen and examined today. She was recently treated with Clindamycin for dental abscess and tested positive for C Diff. She was started on Flagyl just prior to being transferred to the med/psych floor. She denies any complaints at this time and reports feeling well. She denies any fever, chills, nausea, vomiting, diarrhea, cough, shortness of breath, chest pain or abdominal pain. She does endorse chest pain when walking for more than 15 minutes. When asked why she tried to commit suicide patient reports "I am 71 years old and I'm tired of hurting". She denies any chest pain presently. Review of Systems Except as stated in HPI: all other systems reviewed are Neg Past Family Social History Allergies: Coded Allergies: Aspirin (Verified Allergy, Severe, facial edema, 01/03/17) Clindamycin (Verified Allergy, Severe, cdiff, 01/03/17) Penicillin (Verified Allergy, Severe, facial and throat edema, 01/03/17) Bee Sting (Verified Adverse Reaction, Intermediate, Swelling, 01/03/17) Diclofenac (Verified Adverse Reaction, Intermediate, 01/03/17) Erythromycin (Verified Adverse Reaction, Intermediate, itch, 01/03/17) Ibuprofen (Verified Adverse Reaction, Intermediate, itch, 01/03/17) Tetracycline (Verified Adverse Reaction, Intermediate, itch, 01/03/17) Past Medical History HTN CAD s/p CABG 2012 with recent negative cardiac catheterization in October 2016 PAD s/p right CEA Chronic back pain Depression Anxiety Hyperlipidemia Past Surgical History CABG 2012 s/p cardiac catheterization October 2016 Right CEA Hysterectomy Hernia Repair Appendectomy Cataract Surgery Reported Medications Metronidazole (Flagyl)500 Mg Iqz404 Mg PO Q8HR #30 TAB Prov:Cale Tao PA 12/27/16 Isosorbide Mononitrate ER 30 Mg Taber90 Mg PO DAILY #30 TAB Ref 0 12/26/16 Nystatin Liq 100,000 unit/ml Susp5 Ml SWISH-SWAL QID Ref 0 12/26/16 Nitroglycerin SL 0.4 Mg Subl0.4 Mg SL DIRECTED PRN (CHEST PAIN) #100 TAB.SL Ref 0 ONE TABLET UNDER THE TONGUE NEEDED FOR CHEST PAIN, MAY REPEAT EVERY FIVE MINUTES FOR A TOTAL OF 3 DOSES OR CALL 911 IF NO RELIEF 12/26/16 Venlafaxine ER 24 HR 150 Mg Esq051 Mg PO DAILY #30 CAP Ref 0 12/26/16 Multiple Vitamin 1 Tab1 Tab PO DAILY Ref 0 12/26/16 Levothyroxine 100 Mcg Ral108 Mcg PO DAILY #30 TAB Ref 0 12/26/16 Fexofenadine 180 Mg Lad553 Mg PO DAILY #30 TAB Ref 0 12/26/16 Clopidogrel (Plavix)75 Mg Tab75 Mg PO DAILY #30 TAB Ref 0 12/26/16 Active Ordered Medications Current Medications Medications (Trade) Dose Ordered Sig/Ammon Route Start Time Stop Time Status Last Admin (Plavix) 75 mg DAILY PO 12/28/16 09:45 12/28/16 11:24 (Synthroid) 100 mcg DAILY@0600 PO 12/28/16 09:45 (Effexor Xr) 150 mg DAILY PO 12/28/16 09:45 12/28/16 11:23 (Theragran) 1 tab DAILY PO 12/28/16 09:45 12/28/16 11:23 Family History Sister, CAD with previous history of stent placement Social History Patient denies any tobacco use or illicit drug use. She endorses rare alcohol consumption. Physical Exam Vital Signs Vital Signs Date Time Temp Pulse Resp B/P Pulse Ox O2 Delivery O2 Flow Rate FiO2 12/28/16 06:20 97.8 75 18 138/74 99 12/27/16 23:40 98.0 66 18 142/74 12/27/16 22:04 97.3 66 18 142/74 98 Physical Exam GENERAL: This is a well-nourished, well-developed patient, in no apparent distress. Awake and alert. SKIN: No rashes, ecchymoses or lesions. Cool and dry. HEAD: Atraumatic. Normocephalic. No temporal or scalp tenderness. EYES: Pupils equal round and reactive. Extraocular motions intact. No scleral icterus. No injection or drainage. ENT: Nose without bleeding, purulent drainage or septal hematoma. Throat without erythema, tonsillar hypertrophy or exudate. Uvula midline. Airway patent. NECK: Trachea midline. No lymphadenopathy. Supple, nontender, no meningeal signs. CARDIOVASCULAR: Regular rate and rhythm without murmurs, gallops, or rubs. RESPIRATORY: Clear to auscultation. Breath sounds equal bilaterally. No wheezes , rales, or rhonchi. GASTROINTESTINAL: Abdomen soft, non-tender, nondistended. No hepato-splenomegaly , or palpable masses. No guarding. MUSCULOSKELETAL: Extremities without clubbing, cyanosis, or edema. No joint tenderness, effusion, or edema noted. No calf tenderness. NEUROLOGICAL: Awake and alert. Able to move all extremities. No focal neurologic findings appreciated on exam. Normal speech. Laboratory Laboratory Tests Test 12/28/16 12/28/16 06:08 12:12 Sodium Level 146 Potassium Level 3.6 Chloride Level 110 Carbon Dioxide Level 26.9 Anion Gap 9 Blood Urea Nitrogen 6 Creatinine 0.83 Estimat Glomerular Filtration 68 Rate Random Glucose 96 Calcium Level 8.0 Triglycerides Level 314 Cholesterol Level 243 LDL Cholesterol 148 HDL Cholesterol 32.0 Cholesterol/HDL Ratio 7.59 Hemoglobin 13.1 Hematocrit 38.4 Platelet Count 253 Result Diagram: 12/28/16 1212 12/28/16 0608 Assessment and Plan Assessment and Plan 71-year-old female with a PMHX of Anxiety, Depression, HTN, Hyperlipidemia, CAD s/p previous CABG, Right CEA and Chronic Back Pain who was brought to the ER by EMS under [place] Act after Suicide Attempt w/ Intentional Overdose by taking 200 pills of Valium 10mg who has been admitted to psychiatric unit. Hospitalist services have been requested to assist with medical management. Depression/Anxiety/Suicide attempt with Intentional Overdose Management per psychiatric team Recent diagnosis of C Diff infection Reportedly outpatient laboratory told the patient's that she is positive for C. difficile. Resume Flagyl 500mg po q 8h Asymptomatic at present, patient denies any fever, chills, N/V, abdominal pain or diarrhea HTN/CAD/Previous CABG/PAD s/p right CEA adequate control at present continue with Plavix continue with Isosorbide Hypothyroidism Continue with Levothyroxine TSH 4.050 Free T4 1.13 TSH elevation likely due to recent illness/hospitalization recommend repeat labs in 6 weeks with PCP Hypernatremia likely secondary to dehydration GFR 69, U/a negative encourage po intake repeat labs in am. Dyslipidemia TG 314, TC 243, LDL 148, HDL 32 not on any statin patient would benefit from moderate to high intensity statin per ASCVD risk calculator will discuss initiation of statin therapy DVT Prophylaxis Encourage ambulation This note was transcribed by [email or web address] Pickering. I, Dr. Estuardo Yang personally performed the history, physical exam, and medical decision making; and confirmed the accuracy of the information in the transcribed note. Authenticated by Dr. Estuardo Yang on 12/28/16 at 13:34. Delia Pickering December 28, 2016 13:53 Estuardo Camp MD Jan 05, 2017 13:29
--- NOTE | 2016-12-28 14:38 | HHI.HP ---
Provisional Diagnosis Admission Date December 27, 2016 at 21:40 Alex I. Major depressive disorder, recurrent, without psychosis, Alex II. Deferred Alex III. COPD, HTN, hypothyroidism Certification of Person's Competence To Provide Express and Informed Consent I have personally examined Diana Pelaez , a person being served at [facility] on, December 28, 2016 14:26. Express and informed consent means consent voluntarily given in writing, by a competent person, after sufficient explanation and disclosure of the subject matter involved to enable the person to make a knowing and willful decision without any element of force, fraud, deceit, duress, or other form of constraint or coercion. This person is 18 years of age or older, is not now known to be incompetent to consent to treatment with a guardian advocate, and does not have a health care surrogate or proxy currently making medical treatment decisions. I have found this person to be one of the following: [] Competent to provide express and informed consent, as defined above, for voluntary admission to this facility and is competent to provide express and informed consent for treatment. He/she has the consistent capacity to make well reasoned, willful, and knowing decisions concerning his or her medical or mental health treatment. The person fully and consistently understands the purpose of the admission for examination/placement and is fully capable of personally exercising all rights assured [place] Incompetent to provide express and informed consent to voluntary admission, and this is incompetent to provide express and informed consent to treatment. The person must be transferred to involuntary status and a petition for a guardian advocate filed with the Circuit Court. [X] Refusing to provide express and informed consent to voluntary admission but is competent to provide express and informed consent for treatment. The person must be discharged or transferred to involuntary status. Form shall be completed within 24 hours of a person's arrival at the receiving facility and filed in the clinical record of each person: 1. Admitted on a voluntary basis 2. Permitted to provide express and informed consent to his/her own treatment 3. Allowed to transfer from involuntary to voluntary status 4. Prior to permitting a person to consent to his or her own treatment after having been previously found incompetent to consent to treatment. History of Present Illness Capacity: Has Capacity HPI The patient is a 71-year-old woman, domicile with her in [place], retired, with psychiatric history of depression, anxiety , about 4 previous psychiatric hospitalizations, last hospitalization was here at [place] in 2010 under the care of Dr. Lofton, documentation was reviewed, 1 previous suicide attempt by overdosing with Tylenol, active outpatient care with Dr. Landaverde, she has been in Effexor 150 mg, Valium 10 mg daily, medical history of HTN, Hyperlipidemia, CAD and Chronic Back Pain who was brought to the ER by EMS under Richardson Act after Suicide Attempt w/ Intentional Overdose. Per , pt reportedly took approx 200 pills of Valium 10mg earlier this afternoon, however he states he didn't actually see patient take them. On arrival, pt awake, conversive, normal O2 sat and normal vital signs. While in ER, pt states she took "a bottle and a half" of Valium in suicide attempt. CBC unremarkable. K+ 3.0, s/p replacement in ER. GFR 68. U/a negative. Urine Drug Screen positive for Benzo. Alcohol negative. Tylenol/Salicylate negative. On psychiatric evaluation today patient is too sedated to offer any meaningful information for the psychiatric assessment. However, her Stu Pelaez, at bedside was able to provide very useful collateral information. He says that the patient overdosed seriously with approximately 200 pills of Valium. He says that he controls her medication and she was recently prescribed with 130 pills of Valium, plus she had more than 30 left in another bottle. He doesn't think that she is abusing her medication, and she takes them as prescribed. He says that the patient has been depressed in the last months, he cannot identify a reason for this depression. He says that she has been very sad, pessimistic, melancholic, catastrophic. He cannot identify an acute stressor or a reason for the patient to be this way. He says that she recently has been repeating that she lost anton in the future. 12/28/2016 on psychiatric evaluation today patient reports feeling extremely anxious, very scared of being in a psychiatric unit. Patient says that she is also very sad "I'm thinking that I should by taking pills", patient says that she has been extremely overwhelmed in the last days, having frequent conflicts with her "and I feel that I am done already and there are no solutions for me". During the evaluation patient is tearful, seems to be melancholic, fragile and vulnerable. She reports suicidal ideation, but denies any plan and is able to contract for safety in the unit. Patient reports hopelessness, helplessness, decreased appetite, difficulty sleeping at night, generalized pessimism, low self-esteem, sensitivity to frustration and rejection. She is oriented 3, no attention deficit, no gross cognitive impairment present. Patient denies visual and auditory hallucinations. No agitation, no aggressive behavior present in the unit. Review of Systems Constitutional: DENIES: Diaphoretic episodes, Fatigue, Fever, Weight gain, Weight loss, Chills, Dizziness, Change in appetite, Night Sweats Endocrine: DENIES: Abnorml menstrual pattern, Heat/cold intolerance, Polydipsia , Polyuria, Polyphagia Eyes: DENIES: Blurred vision, Diplopia, Eye inflammation, Eye pain, Vision loss , Photosensitivity, Double Vision Ears, nose, mouth, throat: DENIES: Tinnitus, Hearing loss, Vertigo, Nasal discharge, Oral lesions, Throat pain, Hoarseness, Ear Pain, Running Nose, Epistaxis, Sinus Pain, Toothache, Odynophagia Respiratory: DENIES: Apneas, Cough, Snoring, Wheezing, Hemoptysis, Sputum production, Shortness of breath Cardiovascular: DENIES: Chest pain, Palpitations, Syncope, Dyspnea on Exertion , PND, Lower Extremity Edema, Orthopnea, Claudication Gastrointestinal: DENIES: Abdominal pain, Black stools, Bloody stools, Constipation, Diarrhea, Nausea, Vomiting, Difficulty Swallowing, Anorexia Genitourinary: DENIES: Abnormal vaginal bleeding, Dysmenorrhea, Dyspareunia, Sexual dysfunction, Urinary frequency, Urinary incontinence, Urgency, Hematuria , Dysuria, Nocturia, Vaginal discharge Musculoskeletal: DENIES: Joint pain, Muscle aches, Stiffness, Joint Swelling, Back pain, Neck pain Integumentary: DENIES: Abnormal pigmentation, Pruritus, Rash, Nail changes, Breast masses, Breast skin changes, Nipple discharge Hematologic/lymphatic: DENIES: Bruising, Lymphadenopathy Immunologic/allergic: DENIES: Eczema, Urticaria Neurologic: DENIES: Abnormal gait, Headache, Localized weakness, Paresthesias, Seizures, Speech Problems, Tremor, Poor Balance Psychiatric: COMPLAINS OF: Depression, Suicidal Ideation Past Psych History Violence risk - self (6 mos) Elevated risk of danger to self Substance Abuse History Drugs/Alcohol past 12 months Patient denies the use of illegal drugs and alcohol Past Family Social History Coded Allergies: Aspirin (Verified Allergy, Severe, facial edema, 12/25/16) Penicillin (Verified Allergy, Severe, facial and throat edema, 12/25/16) Bee Sting (Verified Adverse Reaction, Intermediate, Swelling, 12/25/16) Diclofenac (Verified Adverse Reaction, Intermediate, 12/25/16) Erythromycin (Verified Adverse Reaction, Intermediate, itch, 12/25/16) Ibuprofen (Verified Adverse Reaction, Intermediate, itch, 12/25/16) Tetracycline (Verified Adverse Reaction, Intermediate, itch, 12/25/16) Active Scripts Metronidazole (Flagyl)500 Mg Hiw335 Mg PO Q8HR #30 TAB Prov:Cale Tao 12/27/16 Reported Medications Isosorbide Mononitrate ER 30 Mg Taber90 Mg PO DAILY #30 TAB Ref 0 12/26/16 Nystatin Liq 100,000 unit/ml Susp5 Ml SWISH-SWAL QID Ref 0 12/26/16 Nitroglycerin SL 0.4 Mg Subl0.4 Mg SL DIRECTED PRN (CHEST PAIN) #100 TAB.SL Ref 0 ONE TABLET UNDER THE TONGUE NEEDED FOR CHEST PAIN, MAY REPEAT EVERY FIVE MINUTES FOR A TOTAL OF 3 DOSES OR CALL 911 IF NO RELIEF 12/26/16 Venlafaxine ER 24 HR 150 Mg [id number] Mg PO DAILY #30 CAP Ref 0 12/26/16 Multiple Vitamin 1 Tab1 Tab PO DAILY Ref 0 12/26/16 Levothyroxine 100 Mcg Fkd872 Mcg PO DAILY #30 TAB Ref 0 12/26/16 Fexofenadine 180 Mg Mbh211 Mg PO DAILY #30 TAB Ref 0 12/26/16 Clopidogrel (Plavix)75 Mg Tab75 Mg PO DAILY #30 TAB Ref 0 12/26/16 Discontinued Reported Medications Diazepam 10 Mg Tab10 Mg PO HS PRN (SLEEP) Ref 0 12/26/16 Diazepam 2 Mg Tab2 Mg PO BID PRN (ANXIETY) Ref 0 12/26/16 Docusate Sodium (Colace)100 Mg Put996 Mg PO BID 05/06/16 Current Medications Medications (Trade) Dose Ordered Sig/Ammon Route Start Time Stop Time Status Last Admin (Plavix) 75 mg DAILY PO 12/28/16 09:45 12/28/16 11:24 (Synthroid) 100 mcg DAILY@0600 PO 12/28/16 09:45 (Effexor Xr) 150 mg DAILY PO 12/28/16 09:45 12/28/16 11:23 (Theragran) 1 tab DAILY PO 12/28/16 09:45 12/28/16 11:23 (KlonoPIN) 0.5 mg Q12HR PO 12/28/16 21:00 Family History Her father was an alcoholic Social History Patient was born and raised in [place], she lives in [place] with , she is retired, she has 3 kids, she used to be a teacher for some time, 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 2) Family support, level of education Physical Exam A physical exam, no tremors, no EPS, no stiffness present Vital Signs Vital Signs Date Time Temp Pulse Resp B/P Pulse Ox O2 Delivery O2 Flow Rate FiO2 12/28/16 06:20 97.8 75 18 138/74 99 Mental Status Examination Appearance woman, younger than his stated age, good hygiene, [facility], fragile, superficially cooperative, tearful Speech: Hesitant, Slow Orientation: x3 Memory: Unremarkable Thought Process: Logical, Goal Directed, Linear Thought Content: Unremarkable Language Fluent and spontaneous Fund of Knowledge Adequate for level of education Hallucination Type: None Attention and Concentration: Good Suicidal Ideation: Yes Previous Suicide Attempts: Yes Homicidal Ideation: No Previous Homicide Attempts: No Insight: Good Judgment: Poor Affect: Sad Mood: Sad Motor Activity: Normal gait, Abnormal gait-specify Assessment & Plan Problem List: (1) Major depressive disorder, recurrent severe without psychotic features Assessment & Plan: Patient continues to show severe depressive symptoms and suicidal thoughts, patient feels hopeless, helpless, pessimistic, with low self- esteem, decreased appetite and level of energy, she also seems to be very fragile, melancholic vulnerable, tearful throughout the interview, endorsing suicidal thoughts without plan at this moment. Patient has recently attempted to commit suicide by overdosing with over 100 pills of diazepam. Several stressors and few protective factors identified at this moment. Patient needs to be hospitalized in psychiatry for stabilization and safety. Extensive support and psycho education provided. We'll consider psychiatric for second opinion. Consult hospitalist to continue management of medical conditions. Will consult PT and OT to help with physical rehabilitation. We'll start Effexor 150 mg for depression, clonazepam 0.5 twice a day mg for anxiety. computer networker intervention for psychosocial assessment, collateral information, group and individual therapy, coordinating safe discharge plan. ICD Code: F33.2 Assessment & Plan Estimated LOS: Dandy Rodrigez MD December 28, 2016 14:38
[2016-12-28 16:03] LABS: HEMOGLOBIN A1a 0.9 %; HEMOGLOBIN A1b 1.4 %; HEMOGLOBIN Ao 86.7 %; HEMOGLOBIN LA1C 1.8 %; HEMOGLOBIN P3 3.2 %
[2016-12-28] MEDS: ISOSORBIDE MONONITRATE 30 MG TAB PO SCH ×2 (17:30→20:59)
[2016-12-28 18:00] VITALS: BP 163/72; PULSE 73; RESP 18; TEMP 97.6; O2SAT 98
[2016-12-28] MEDS: metroNIDAZOLE 500 MG TAB PO SCH (21:00)
[2016-12-28] MEDS: clonazePAM 0.5 MG TAB PO SCH (21:00)
[2016-12-29] MEDS: metroNIDAZOLE 500 MG TAB PO SCH ×3 (06:11→21:31)
[2016-12-29] MEDS: LEVOTHYROXINE SODIUM 100 MCG TAB PO SCH (06:11)
[2016-12-29 06:18] VITALS: BP 159/78; PULSE 70; RESP 16; TEMP 97.6; O2SAT 95
[2016-12-29] MEDS: clonazePAM 0.5 MG TAB PO SCH ×2 (06:59→21:31)
--- NOTE | 2016-12-29 08:03 | PD.CONS ---
Provisional Diagnosis Admission Date December 27, 2016 at 21:40 [place] I. Major depressive disorder, recurrent, without psychosis, [place] II. Deferred [place] III. COPD, HTN, hypothyroidism History of Present Illness Service Psychiatry Consult Requested By Primary Care Physician Germaine Barakat MD [facility] The patient is a 71-year-old woman, domicile with her in [place], retired, with psychiatric history of depression, anxiety , about 4 previous psychiatric hospitalizations, last hospitalization was here at [place] in 2010 under the care of Dr. Lofton, documentation was reviewed, 1 previous suicide attempt by overdosing with Tylenol, active outpatient care with Dr. Landaverde, she has been in Effexor 150 mg, Valium 10 mg daily, medical history of HTN, Hyperlipidemia, CAD and Chronic Back Pain who was brought to the ER by EMS under Richardson Act after Suicide Attempt w/ Intentional Overdose. Per , pt reportedly took approx 200 pills of Valium 10mg earlier this afternoon, however he states he didn't actually see patient take them. On arrival, pt awake, conversive, normal O2 sat and normal vital signs. While in ER, pt states she took "a bottle and a half" of Valium in suicide attempt. CBC unremarkable. K+ 3.0, s/p replacement in ER. GFR 68. U/a negative. Urine Drug Screen positive for Benzo. Alcohol negative. Tylenol/Salicylate negative. On psychiatric evaluation today patient is too sedated to offer any meaningful information for the psychiatric assessment. However, her Stu Pelaez, at bedside was able to provide very useful collateral information. He says that the patient overdosed seriously with approximately 200 pills of Valium. He says that he controls her medication and she was recently prescribed with 130 pills of Valium, plus she had more than 30 left in another bottle. He doesn't think that she is abusing her medication, and she takes them as prescribed. He says that the patient has been depressed in the last months, he cannot identify a reason for this depression. He says that she has been very sad, pessimistic, melancholic, catastrophic. He cannot identify an acute stressor or a reason for the patient to be this way. He says that she recently has been repeating that she lost anton in the future. 12/28/2016 on psychiatric evaluation today patient reports feeling extremely anxious, very scared of being in a psychiatric unit. Patient says that she is also very sad "I'm thinking that I should by taking pills", patient says that she has been extremely overwhelmed in the last days, having frequent conflicts with her "and I feel that I am done already and there are no solutions for me". During the evaluation patient is tearful, seems to be melancholic, fragile and vulnerable. She reports suicidal ideation, but denies any plan and is able to contract for safety in the unit. Patient reports hopelessness, helplessness, decreased appetite, difficulty sleeping at night, generalized pessimism, low self-esteem, sensitivity to frustration and rejection. She is oriented 3, no attention deficit, no gross cognitive impairment present. Patient denies visual and auditory hallucinations. No agitation, no aggressive behavior present in the unit. 12/29/16 Above note dictated by Dr. Bourgeois reviewed and agreed with. Patient is 71- year-old white female admitted to Dr. Bourgeois service under the Richardson act. He should seen by me in [place] with nurse Pérez. Patient labile tearful sad and depressed. It appears she took a large overdose of Valium to the point which needed to be intubated to protect her airway and her respirations. The present time patient is markedly depressed with no insight into her disease. Dr. Bourgeois #first opinion petition supporting Ricahr[place] act. I agree. Patient meets criteria for involuntary psychiatric hospitalization under the Richardson act. Thus I will cosign second opinion petition supporting Richardson act Past Family Social History Coded Allergies: Aspirin (Verified Allergy, Severe, facial edema, 12/25/16) Penicillin (Verified Allergy, Severe, facial and throat edema, 12/25/16) Bee Sting (Verified Adverse Reaction, Intermediate, Swelling, 12/25/16) Diclofenac (Verified Adverse Reaction, Intermediate, 12/25/16) Erythromycin (Verified Adverse Reaction, Intermediate, itch, 12/25/16) Ibuprofen (Verified Adverse Reaction, Intermediate, itch, 12/25/16) Tetracycline (Verified Adverse Reaction, Intermediate, itch, 12/25/16) Active Scripts Metronidazole (Flagyl)500 Mg Kar495 Mg PO Q8HR #30 TAB Prov:Cale Tao 12/27/16 Reported Medications Isosorbide Mononitrate ER 30 Mg Taber90 Mg PO DAILY #30 TAB Ref 0 12/26/16 Nystatin Liq 100,000 unit/ml Susp5 Ml SWISH-SWAL QID Ref 0 12/26/16 Nitroglycerin SL 0.4 Mg Subl0.4 Mg SL DIRECTED PRN (CHEST PAIN) #100 TAB.SL Ref 0 ONE TABLET UNDER THE TONGUE NEEDED FOR CHEST PAIN, MAY REPEAT EVERY FIVE MINUTES FOR A TOTAL OF 3 DOSES OR CALL 911 IF NO RELIEF 12/26/16 Venlafaxine ER 24 HR 150 Mg Owq441 Mg PO DAILY #30 CAP Ref 0 12/26/16 Multiple Vitamin 1 Tab1 Tab PO DAILY Ref 0 12/26/16 Levothyroxine 100 Mcg Pyp754 Mcg PO DAILY #30 TAB Ref 0 12/26/16 Fexofenadine 180 Mg Klb237 Mg PO DAILY #30 TAB Ref 0 12/26/16 Clopidogrel (Plavix)75 Mg Tab75 Mg PO DAILY #30 TAB Ref 0 12/26/16 Discontinued Reported Medications Diazepam 10 Mg Tab10 Mg PO HS PRN (SLEEP) Ref 0 12/26/16 Diazepam 2 Mg Tab2 Mg PO BID PRN (ANXIETY) Ref 0 12/26/16 Docusate Sodium (Colace)100 Mg Bep292 Mg PO BID 05/06/16 Current Medications Medications (Trade) Dose Ordered Sig/Ammon Route Start Time Stop Time Status Last Admin (Plavix) 75 mg DAILY PO 12/28/16 09:45 12/28/16 11:24 (Synthroid) 100 mcg DAILY@0600 PO 12/28/16 09:45 12/29/16 06:11 (Effexor Xr) 150 mg DAILY PO 12/28/16 09:45 12/28/16 11:23 (Theragran) 1 tab DAILY PO 12/28/16 09:45 12/28/16 11:23 (KlonoPIN) 0.5 mg Q12HR PO 12/28/16 21:00 12/29/16 06:59 (Imdur) 90 mg DAILY PO 12/28/16 17:30 12/28/16 20:59 (Flagyl) 500 mg Q8HR PO 12/28/16 22:00 12/29/16 06:11 Patient's Strengths (min. 2) Family support, level of education Physical Exam Vital Signs Vital Signs Date Time Temp Pulse Resp B/P Pulse Ox O2 Delivery O2 Flow Rate FiO2 12/29/16 06:18 97.6 70 16 159/78 95 I/O 12/28/16 12/28/16 12/29/16 08:00 16:00 00:00 Intake Total 600 ml 600 ml Balance 600 ml 600 ml Mental Status Examination Speech: Hesitant, Slow Orientation: x3 Memory: Unremarkable Thought Process: Logical, Goal Directed, Linear Thought Content: Unremarkable Hallucination Type: None Attention and Concentration: Good Suicidal Ideation: Yes Previous Suicide Attempts: Yes Homicidal Ideation: No Previous Homicide Attempts: No Insight: Good Judgment: Poor Affect: Sad Mood: Sad Motor Activity: Normal gait, Abnormal gait-specify Assessment & Plan Problem List: (1) Major depressive disorder, recurrent severe without psychotic features ICD Code: F33.2 Assessment & Plan Estimated LOS: Guillaume Gonzalez MD December 29, 2016 08:03
[2016-12-29] MEDS: VENLAFAXINE HCL XR 75 MG CAP PO SCH (08:24)
[2016-12-29] MEDS: ISOSORBIDE MONONITRATE 30 MG TAB PO SCH (08:25)
[2016-12-29] MEDS: MULTIVITAMIN TAB PO SCH (08:25)
[2016-12-29] MEDS: CLOPIDOGREL 75 MG TAB PO SCH (08:25)
[2016-12-29 12:17] VITALS: BP 122/82; PULSE 73
[2016-12-29] MEDS ORDERED: POLYETHYLENE GLYCOL 17 GM PKG PO ONE (12:30)
[2016-12-29] MEDS ORDERED: NITROGLYCERIN 0.4 MG SL 25 TABS/BTL SL PRN (12:30)
[2016-12-29] MEDS: DOCUSATE SODIUM 100 MG CAP PO SCH ×2 (12:30→21:31)
--- NOTE | 2016-12-29 13:42 | HHI.PYPN ---
Subjective Remarks She was seen today for psychiatric evaluation along with nurse Beto, patient was sitting in her chair, she was crying, seems to be very labile, she reports that she had a panic attack in the morning, an episode that she described as a sudden, unexpected palpitation, sweating, chest pain, impending doom. She says that she felt very alone and abandoned by the nurses when she had this panic attack.. Patient reports sad mood, hopelessness, helplessness, she elaborates about conflicts with her and his inability to understand her. She reports suicidal thoughts, but denies suicidal intentions or plan. She is oriented 3, no attention deficit, compliant with medications. Review of Systems Respiratory: COMPLAINS OF: Shortness of breath Cardiovascular: COMPLAINS OF: Palpitations Psychiatric: COMPLAINS OF: Anxiety Objective Alert: Yes Moore: Person, Place, Date, Situation Mood: Agitated, Depressed Affect: Labile Memory Intact: Immediate, Recent Hallucinations: Other (she denies) Delusions: No Delusion Type: Other (no delusions) Suicidal: Ideation (suicidal thoughts, no plan) Homicidal: Ideation (no HI) Insight/Judgment Poor Vitals/IOs Vital Signs Date Time Temp Pulse Resp B/P Pulse Ox O2 Delivery O2 Flow Rate FiO2 12/29/16 12:17 73 122/82 12/29/16 06:18 97.6 16 95 Intake and Output 12/28/16 12/28/16 12/29/16 08:00 16:00 00:00 Intake Total 600 ml 600 ml Balance 600 ml 600 ml Assessment & Plan Problem List: (1) Major depressive disorder, recurrent severe without psychotic features Assessment & Plan: On psychiatric evaluation patient continued to endorsed symptomatology of depression, she is very tearful, vulnerable, endorses suicidal thoughts and wish to be , but denies suicidal ideation. Patient had an episode of panic attack early in the morning, endorses chest pain, sweating, palpitations, and impending doom. Will increase Effexor to 225 mg daily. Behavioral techniques practiced with the patient. Hospitalist consult appreciated. ICD Code: F33.2 Assessment & Plan Estimated LOS: days Justification for Cont. Inpt. Patient needs to continue inpatient level of care for safety and stabilization aDndy Rodrigez MD December 29, 2016 13:42
--- NOTE | 2016-12-29 13:45 | HHI.PR ---
Subjective Remarks Follow up on patient with Anxiety, Depression, HTN, Hyperlipidemia, CAD s/p previous CABG, Right CEA, Chronic Back Pain and (+)Cdiff infection. Patient seen and examined today. Patient complains of episode of chest pain this morning. She denies any associated dizziness, vision changes, heart palpitations, shortness of breath, nausea or vomiting or abdominal pain. Discussed with nursing staff, during episode patient did not complain of chest pain but kept repeating that she needs a nitroglycerin. She was given a clonidine with resolution of her complaints. Patient denies any chest pain presently. She denies any diarrhea. In fact, she is complaining of constipation has not had a bowel movement in several days. She complains of urinary urgency, frequency and incontinence. She denies any dysuria or hematuria. She endorses allergies to aspirin which makes her face swell as well as all statins which cause her to have weakness and hives. Objective Vitals Vital Signs Date Time Temp Pulse Resp B/P Pulse Ox O2 Delivery O2 Flow Rate FiO2 12/29/16 12:17 73 122/82 12/29/16 06:18 97.6 70 16 159/78 95 12/28/16 18:00 97.6 73 18 163/72 98 I/O 12/28/16 12/28/16 12/28/16 12/29/16 12/29/16 12/29/16 07:00 15:00 23:00 07:00 15:00 23:00 Intake Total 600 ml 600 ml 360 ml 960 ml Balance 600 ml 600 ml 360 ml 960 ml Intake Oral 600 ml 600 ml 360 ml 960 ml # Voids 2 2 Result Diagram: 12/28/16 1212 12/28/16 0608 Objective Remarks GENERAL: This is a well-nourished, well-developed patient, in no apparent distress. Awake and alert. SKIN: No rashes, ecchymoses or lesions. Cool and dry. HEENT: Atraumatic. Normocephalic. Extraocular motions intact. No scleral icterus. No injection or drainage. MMM. CARDIOVASCULAR: Regular rate and rhythm without murmurs, gallops, or rubs. RESPIRATORY: Clear to auscultation. Breath sounds equal bilaterally. No wheezes , rales, or rhonchi. GASTROINTESTINAL: Abdomen soft, non-tender, nondistended. No hepato-splenomegaly , or palpable masses. No guarding. MUSCULOSKELETAL: Extremities without clubbing, cyanosis, or edema. No joint tenderness, effusion, or edema noted. No calf tenderness. NEUROLOGICAL: Awake and alert. Able to move all extremities. No focal neurologic findings appreciated on exam. Normal speech. Medications and IVs Current Medications Medications (Trade) Dose Ordered Sig/Ammon Route Start Time Stop Time Status Last Admin (Plavix) 75 mg DAILY PO 12/28/16 09:45 12/29/16 08:25 (Synthroid) 100 mcg DAILY@0600 PO 12/28/16 09:45 12/29/16 06:11 (Effexor Xr) 150 mg DAILY PO 12/28/16 09:45 12/29/16 08:24 (Theragran) 1 tab DAILY PO 12/28/16 09:45 12/29/16 08:25 (KlonoPIN) 0.5 mg Q12HR PO 12/28/16 21:00 12/29/16 06:59 (Imdur) 90 mg DAILY PO 12/28/16 17:30 12/29/16 08:25 (Flagyl) 500 mg Q8HR PO 12/28/16 22:00 12/29/16 06:11 (Nitrostat Sl) 0.4 mg Q5M PRN SL 12/29/16 12:30 (Colace) 100 mg BID PO 12/29/16 12:30 A/P Assessment and Plan 71-year-old female with a PMHX of Anxiety, Depression, HTN, Hyperlipidemia, CAD s/p previous CABG, Right CEA and Chronic Back Pain who was brought to the ER by EMS under [place] Act after Suicide Attempt w/ Intentional Overdose by taking 200 pills of Valium 10mg who has been admitted to psychiatric unit. Hospitalist services have been requested to assist with medical management. Depression/Anxiety/Suicide attempt with Intentional Overdose Management per psychiatric team Recent diagnosis of C Diff infection Reportedly outpatient laboratory told the patient's that she is positive for C. difficile. Unable to verify positive results. Will order C diff PCR. Continue Flagyl 500mg po q 8h Asymptomatic at present, patient denies any fever, chills, N/V, abdominal pain or diarrhea. In fact, patient complaining of constipation. Will add stool softeners and MiraLAX. HTN/CAD/Previous CABG/PAD s/p right CEA episode of chest pain earlier today, resolved after being given Klonopin. Asymptomatic presently. continue with Plavix continue with Isosorbide Add nitroglycerin when necessary chest pain Patient unable to tolerate aspirin and statins Obtain baseline EKG Hypothyroidism Continue with Levothyroxine TSH 4.050 Free T4 1.13 TSH elevation likely due to recent illness/hospitalization recommend repeat labs in 6 weeks with PCP Urinary urgency, frequency and incontinence Obtain UA Hypernatremia likely secondary to dehydration GFR 69, U/a negative encourage po intake todays labs pending Dyslipidemia TG 314, TC 243, LDL 148, HDL 32 not on any statin patient would benefit from moderate to high intensity statin per ASCVD risk calculator Discussed with patient today, she is been tried on multiple statins at varying doses and is unable to tolerate DVT Prophylaxis Encourage ambulation Discussed with nursing staff, patient and Dr. Oswald. Delia Pickering December 29, 2016 13:45
[2016-12-29 14:10] LABS: BICARBONATE 31.8 MEQ/L (21.0-32.0); POTASSIUM 3.5 MEQ/L (3.5-5.1)
[2016-12-29 17:26] VITALS: BP 130/67; PULSE 74; RESP 16; TEMP 98.1; O2SAT 99
[2016-12-29 23:09] LABS: BLOOD, URINE NEG (NEG); GLUCOSE,URINE NEG (NEG); KETONE, URINE NEG (NEG); MUCUS URINE FEW /lpf (OCC); NITRITE,URINE NEG (NEG); PH, URINE 6.5 (5.0-8.5); TRANSITIONAL EPI CELLS, URINE <1 /hpf; URINE COLOR YELLOW (YELLW/STRAW)
[2016-12-29 23:12] LABS: COMMENT (UR) CULT NOT INDICATED; CULTURE IF INDICATED CULT NOT INDICATED
[2016-12-30] MEDS ORDERED: ACETAMINOPHEN/CODEINE 300 MG/30 MG TAB PO ONE (00:30)
[2016-12-30 01:40] VITALS: BP 144/78; PULSE 76; RESP 16; O2SAT 96
[2016-12-30] MEDS: metroNIDAZOLE 500 MG TAB PO SCH ×3 (05:50→21:42)
[2016-12-30] MEDS: LEVOTHYROXINE SODIUM 100 MCG TAB PO SCH (05:50)
[2016-12-30 06:00] VITALS: BP 132/80; PULSE 73; RESP 16; TEMP 97.6; O2SAT 97
[2016-12-30] MEDS: MULTIVITAMIN TAB PO SCH (08:03)
[2016-12-30] MEDS: ISOSORBIDE MONONITRATE 30 MG TAB PO SCH (08:03)
[2016-12-30] MEDS: DOCUSATE SODIUM 100 MG CAP PO SCH ×2 (08:03→21:42)
[2016-12-30] MEDS: VENLAFAXINE HCL XR 75 MG CAP PO SCH (08:03)
[2016-12-30] MEDS: clonazePAM 0.5 MG TAB PO SCH ×2 (08:03→21:42)
[2016-12-30] MEDS: CLOPIDOGREL 75 MG TAB PO SCH (08:03)
--- NOTE | 2016-12-30 11:47 | RADRPT ---
EXAM DATE/TIME: 12/30/2016 11:15 [facility] COMPARISON: No previous studies available for comparison. INDICATIONS : Fall yesterday. RADIATION DOSE: 47.98 CTDIvol (mGy) MEDICAL HISTORY : None SURGICAL HISTORY : None. ENCOUNTER: Initial ACUITY: 1 day PAIN SCALE: 0/10 LOCATION: cranial TECHNIQUE: Multiple contiguous axial images were obtained of the head. Using automated exposure control and adj ustment of the mA and/or kV according to patient size, radiation dose was kept as low as reasonably a chievable to obtain optimal diagnostic quality images. FINDINGS: CEREBRUM: There are areas of low attenuation throughout the white matter. 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 Old right basal ganglia lacunar infarcts. The ventricles are normal for age. No evidence of midline shift, mass lesion, hemorrhage or acute infarction. No extra-axial fluid collections are seen. POSTERIOR FOSSA: The cerebellum and brainstem are intact. The 4th ventricle is midline. The cerebellopontine angle i s unremarkable. EXTRACRANIAL: The visualized portion of the orbits is intact. SKULL: The calvaria is intact. No evidence of skull fracture. CONCLUSION: 1. No acute intracranial abnormality. 2. Remote infarcts. Paul Plunkett MD on December 30, 2016 at 11:42 Board Certified Radiologist. This report was verified electronically.
--- NOTE | 2016-12-30 13:54 | HHI.PYPN ---
Subjective Remarks Patient seen today for psychiatric reevaluation along with nurse in charge Beto , patient is in her room, she is found crying, stating that her life is not worth living, patient says that her multiple conflicts with , loneliness and lack of social and family support are a real issue in her life. Patient says that she is pessimistic about the outcome of this hospitalization. She says her depression is 3/10. However, she reports sleeping better, and better appetite. Patient is oriented 3, no attention deficit, she is compliant with medication, no agitation or aggressive behavior reported at this moment. Review of Systems Other No significant somatic complaints Objective Alert: Yes [place]: Person, Place, Date, Situation Mood: Agitated, Depressed Affect: Labile Memory Intact: Immediate, Recent Hallucinations: Other (she denies) Delusions: No Delusion Type: Other (no delusions) Suicidal: Ideation (suicidal thoughts, no plan) Homicidal: Ideation (no HI) Insight/Judgment Poor Labs Test 12/29/16 22:30 Urine Color YELLOW Urine Turbidity CLEAR Urine pH 6.5 Urine Specific [place] 1.007 Urine Protein NEG mg/dL Urine Glucose (UA) NEG mg/dL Urine Ketones NEG mg/dL Urine Occult Blood NEG Urine Nitrite NEG Urine Bilirubin NEG Urine Urobilinogen LESS THAN 2.0 MG/DL Urine Leukocyte Esterase NEG Urine RBC 1 /hpf Urine WBC 3 /hpf Urine Transitional Epithelial <1 /hpf Cells Urine Mucus FEW /lpf Microscopic Urinalysis Comment CULT NOT INDICATED Vitals/IOs Vital Signs Date Time Temp Pulse Resp B/P Pulse Ox O2 Delivery O2 Flow Rate FiO2 12/30/16 06:00 97.6 73 16 132/80 97 Intake and Output 12/29/16 12/29/16 12/30/16 08:00 16:00 00:00 Intake Total 840 ml 480 ml 480 ml Balance 840 ml 480 ml 480 ml Assessment & Plan Problem List: (1) Major depressive disorder, recurrent severe without psychotic features Assessment & Plan: Patient continues to show depressed mood, significant lability and irritable affect, still having suicidal thoughts. Able to contract for safety in the unit. Will continue current psychotropics. ICD Code: F33.2 Assessment & Plan Estimated LOS: days Justification for Cont. Inpt. Patient has an increased risk to decompensate at a lower work level of care Dandy Rodrigez MD December 30, 2016 13:54
[2016-12-30] MEDS ORDERED: POLYETHYLENE GLYCOL 17 GM PKG PO ONE (14:00)
[2016-12-30] MEDS ORDERED: MAGNESIUM HYDROXIDE SUSP 30 ML CUP PO PRN (14:00)
[2016-12-30 14:23] VITALS: BP 126/61; PULSE 80; RESP 18; TEMP 98.2; O2SAT 96
--- NOTE | 2016-12-30 16:05 | EKG ---
Date Performed: 12/29/2016 Time Performed: 14:34:18 PTAGE: 71 years EKG: Sinus rhythm Nonspecific ST segment changes. Since previous tracing, no significant change noted ABNORMAL ECG PREVIOUS TRACING : 12/25/2016 17.25 DOCTOR: Brian Riggs Interpretating Date/Time 12/30/2016 16:04:40
--- NOTE | 2016-12-30 19:07 | HHI.PR ---
Subjective Remarks Follow up on patient with Anxiety, Depression, HTN, Hyperlipidemia, CAD s/p previous CABG, Right CEA, Chronic Back Pain and (+)Cdiff infection. Patient seen and examined today. Patient c/o of right sided low back pain s/p fall last night. Denies any associated presyncope/syncope, dizziness, N/V, headache , palpitations, SOB, chest pain or abdominal pain. No recurrence of chest pain. Denies any LOC. She did not hit her head. CT head done without any acute findings. Objective Vitals Vital Signs Date Time Temp Pulse Resp B/P Pulse Ox O2 Delivery O2 Flow Rate FiO2 12/30/16 14:23 98.2 80 18 126/61 96 12/30/16 06:00 97.6 73 16 132/80 97 12/30/16 01:40 76 16 144/78 96 I/O 12/29/16 12/29/16 12/29/16 12/30/16 12/30/16 12/30/16 07:00 15:00 23:00 07:00 15:00 23:00 Intake Total 360 ml 960 ml 480 ml Output Total 700 ml Balance 360 ml 960 ml 480 ml -700 ml Intake Oral 360 ml 960 ml 480 ml Output Urine Total 700 ml # Voids 2 4 Result Diagram: 12/28/16 1212 12/29/16 1336 Objective Remarks GENERAL: This is a well-nourished, well-developed patient, in no apparent distress. Awake and alert. SKIN: No rashes, ecchymoses or lesions. Cool and dry. HEENT: Atraumatic. Normocephalic. Extraocular motions intact. No scleral icterus. No injection or drainage. MMM. CARDIOVASCULAR: Regular rate and rhythm without murmurs, gallops, or rubs. RESPIRATORY: Clear to auscultation. Breath sounds equal bilaterally. No wheezes , rales, or rhonchi. GASTROINTESTINAL: Abdomen soft, non-tender, nondistended. No hepato-splenomegaly , or palpable masses. No guarding. MUSCULOSKELETAL: Extremities without clubbing, cyanosis, or edema. No joint tenderness, effusion, or edema noted. No calf tenderness. NEUROLOGICAL: Awake and alert. Able to move all extremities. No focal neurologic findings appreciated on exam. Normal speech. Medications and IVs Current Medications Medications (Trade) Dose Ordered Sig/Ammon Route Start Time Stop Time Status Last Admin (Plavix) 75 mg DAILY PO 12/28/16 09:45 12/30/16 08:03 (Synthroid) 100 mcg DAILY@0600 PO 12/28/16 09:45 12/30/16 05:50 (Theragran) 1 tab DAILY PO 12/28/16 09:45 12/30/16 08:03 (KlonoPIN) 0.5 mg Q12HR PO 12/28/16 21:00 12/30/16 08:03 (Imdur) 90 mg DAILY PO 12/28/16 17:30 12/30/16 08:03 (Flagyl) 500 mg Q8HR PO 12/28/16 22:00 12/30/16 14:00 (Nitrostat Sl) 0.4 mg Q5M PRN SL 12/29/16 12:30 (Colace) 100 mg BID PO 12/29/16 12:30 12/30/16 08:03 (Effexor Xr) 225 mg DAILY PO 12/30/16 09:00 12/30/16 08:03 (Miralax) 17 gm DAILY PO 12/31/16 09:00 (Milk Of Magnesia Liq) 30 ml DAILY PRN PO 12/30/16 14:00 A/P Assessment and Plan 71-year-old female with a PMHX of Anxiety, Depression, HTN, Hyperlipidemia, CAD s/p previous CABG, Right CEA and Chronic Back Pain who was brought to the ER by EMS under [place] Act after Suicide Attempt w/ Intentional Overdose by taking 200 pills of Valium 10mg who has been admitted to psychiatric unit. Hospitalist services have been requested to assist with medical management. Depression/Anxiety/Suicide attempt with Intentional Overdose Management per psychiatric team Recent diagnosis of C Diff infection Reportedly outpatient laboratory told the patient's that she is positive for C. difficile. Unable to verify positive results. Will order C diff PCR - unable test due to no specimen Continue Flagyl 500mg po q 8h Asymptomatic at present, patient denies any fever, chills, N/V, abdominal pain or diarrhea. In fact, patient complaining of constipation. Requested nursing staff contact [facility] to verify C Diff was positive. Constipation on Miralax and stool softeners no BM as of yet s/p Fall last night with complaints of right sided low back pain Denies any LOC, syncope, headache, dizziness, palpitations, chest pain or SOB. No head injury. CT head without any acute intracranial findings. Xray T and L spine for further evaluation HTN/CAD/Previous CABG/PAD s/p right CEA episode of chest pain, resolved after being given Klonopin. Asymptomatic presently. continue with Plavix continue with Isosorbide Add nitroglycerin when necessary chest pain Patient unable to tolerate aspirin and statins Baseline EKG - NSR, nonspecific T wave changes Hypothyroidism Continue with Levothyroxine TSH 4.050 Free T4 1.13 TSH elevation likely due to recent illness/hospitalization recommend repeat labs in 6 weeks with PCP Urinary urgency, frequency and incontinence UA negative Hypernatremia likely secondary to dehydration resolved BOBBY avoid nephrotoxic agents encourage po intake recheck BMP in am Dyslipidemia TG 314, TC 243, LDL 148, HDL 32 not on any statin patient would benefit from moderate to high intensity statin per ASCVD risk calculator Discussed with patient today, she is been tried on multiple statins at varying doses and is unable to tolerate DVT Prophylaxis Encourage ambulation Discussed with nursing staff, patient and Dr. Oswald. Delia Pickering December 30, 2016 19:07
[2016-12-30 20:00] VITALS: BP 142/84; PULSE 82; RESP 18; TEMP 97.8; O2SAT 95
--- NOTE | 2016-12-30 21:41 | RADRPT ---
EXAM DATE/TIME: 12/30/2016 21:05 [facility] COMPARISON: No previous studies available for comparison. INDICATIONS : Mid back pain. MEDICAL HISTORY : None. SURGICAL HISTORY : None. ENCOUNTER: Initial ACUITY: 3 days PAIN SCORE: 6/10 LOCATION: Bilateral Paraspinal FINDINGS: There is normal alignment of the thoracic vertebral bodies. Vertebral body height is maintained. No evidence of fracture or subluxation. Pedicles are intact at all levels. The paravertebral reflecti ons are not thickened. CONCLUSION: No acute disease. Watson Stoddard Jr., MD on December 30, 2016 at 21:39 Board Certified Radiologist. This report was verified electronically.
--- NOTE | 2016-12-30 21:42 | RADRPT ---
EXAM DATE/TIME: 12/30/2016 21:06 [facility] COMPARISON: No previous studies available for comparison. INDICATIONS : Low back pain. MEDICAL HISTORY : None. SURGICAL HISTORY : None. ENCOUNTER: Initial ACUITY: 3 days PAIN SCORE: 7/10 LOCATION: Bilateral Paraspinal FINDINGS: Frontal and lateral views of the lumbar spine show a superior endplate compression deformity involvin g L1. There is 50% loss of height. No discrete cortical or trabecular irregularity observed. Remainin g vertebral body heights are maintained. Calcified plaque involving the abdominal aorta. CONCLUSION: Age-indeterminate L1 compression deformity. Watson Stoddard Jr., MD on December 30, 2016 at 21:40 Board Certified Radiologist. This report was verified electronically.
[2016-12-31] VITALS: BP 131/72; PULSE 75; RESP 20; TEMP 98.7; O2SAT 97
[2016-12-31 05:24] VITALS: BP 151/77; PULSE 72; RESP 15; TEMP 97.7; O2SAT 96
[2016-12-31] MEDS: metroNIDAZOLE 500 MG TAB PO SCH ×3 (05:56→21:44)
[2016-12-31] MEDS: LEVOTHYROXINE SODIUM 100 MCG TAB PO SCH (05:57)
[2016-12-31] MEDS: ISOSORBIDE MONONITRATE 30 MG TAB PO SCH (08:44)
[2016-12-31] MEDS: clonazePAM 0.5 MG TAB PO SCH ×2 (08:44→21:44)
[2016-12-31] MEDS: CLOPIDOGREL 75 MG TAB PO SCH (08:44)
[2016-12-31] MEDS: DOCUSATE SODIUM 100 MG CAP PO SCH ×2 (08:44→21:44)
[2016-12-31] MEDS: MULTIVITAMIN TAB PO SCH (08:44)
[2016-12-31] MEDS: VENLAFAXINE HCL XR 75 MG CAP PO SCH (08:44)
[2016-12-31] MEDS: POLYETHYLENE GLYCOL 17 GM PKG PO SCH ×2 (08:54→14:58)
[2016-12-31 12:50] LABS: BICARBONATE 29.8 MEQ/L (21.0-32.0); POTASSIUM 4.1 MEQ/L (3.5-5.1)
--- NOTE | 2016-12-31 13:15 | HHI.PYPN ---
Subjective Remarks Patient in very pleasant mood. Talkative and humorous. Review of Systems Except as stated in HPI: all other systems reviewed are Neg Objective Alert: Yes [place]: Person, Place, Date, Situation Mood: Agitated, Depressed Affect: Labile Memory Intact: Immediate, Recent Hallucinations: Other (she denies) Delusions: No Delusion Type: Other (no delusions) Suicidal: Ideation (suicidal thoughts, no plan) Homicidal: Ideation (no HI) Insight/Judgment Improved Labs Test 12/31/16 11:53 Sodium Level 140 MEQ/L Potassium Level 4.1 MEQ/L Chloride Level 102 MEQ/L Carbon Dioxide Level 29.8 MEQ/L Anion Gap 8 MEQ/L Blood Urea Nitrogen 11 MG/DL Creatinine 0.99 MG/DL Estimat Glomerular Filtration 56 ML/MIN Rate Random Glucose 94 MG/DL Calcium Level 8.6 MG/DL Vitals/IOs Vital Signs Date Time Temp Pulse Resp B/P Pulse Ox O2 Delivery O2 Flow Rate FiO2 12/31/16 05:24 97.7 72 15 151/77 96 Intake and Output 12/30/16 12/30/16 12/31/16 08:00 16:00 00:00 Intake Total 950 ml Output Total 700 ml 0 ml Balance -700 ml 950 ml Assessment & Plan Problem List: (1) Major depressive disorder, recurrent severe without psychotic features ICD Code: F33.2 Assessment & Plan Estimated LOS: 2 days Justification for Cont. Inpt. Dr. Bourgeois to evaluate. Jackson Lofton MD December 31, 2016 13:15
--- NOTE | 2016-12-31 13:52 | HHI.PR ---
Subjective Remarks Follow up on patient with Anxiety, Depression, HTN, Hyperlipidemia, CAD s/p previous CABG, Right CEA, Chronic Back Pain and (+)Cdiff infection. Patient seen and examined today. Patient states she feels great. Denies any chest pain. Denies any back pain. Patient reports previous h/o L1 compression fracture from years ago. Denies any f/c, n/v, dizziness, SOB, chest pain or abdominal pain. States she has had only small hard stools. Objective Vitals Vital Signs Date Time Temp Pulse Resp B/P Pulse Ox O2 Delivery O2 Flow Rate FiO2 12/31/16 05:24 97.7 72 15 151/77 96 12/31/16 00:00 98.7 75 20 131/72 97 12/30/16 20:00 97.8 82 18 142/84 95 12/30/16 14:23 98.2 80 18 126/61 96 I/O 12/30/16 12/30/16 12/30/16 12/31/16 12/31/16 12/31/16 07:00 15:00 23:00 07:00 15:00 23:00 Intake Total 950 ml Output Total 700 ml 0 ml Balance -700 ml 950 ml Intake Oral 950 ml Output Urine Total 700 ml Stool Total 0 ml # Voids 1 2 Result Diagram: 12/28/16 1212 12/31/16 1153 Imaging Last Impressions Thoracic Spine X-Ray 12/30/16 0000 Signed Impressions: Service Date/Time: Friday, December 30, 2016 21:05 - CONCLUSION: No acute disease. Watson Stoddard Jr., MD Lumbar Spine X-Ray 12/30/16 0000 Signed Impressions: Service Date/Time: Friday, December 30, 2016 21:06 - CONCLUSION: Age- indeterminate L1 compression deformity. Watson Stoddard Jr., MD Head CT 12/30/16 0000 Signed Impressions: Service Date/Time: Friday, December 30, 2016 11:15 - CONCLUSION: 1. No acute intracranial abnormality. 2. Remote infarcts. Paul Plunkett MD Objective Remarks GENERAL: This is a well-nourished, well-developed patient, in no apparent distress. Awake and alert. SKIN: No rashes, ecchymoses or lesions. Cool and dry. HEENT: Atraumatic. Normocephalic. Extraocular motions intact. No scleral icterus. No injection or drainage. MMM. CARDIOVASCULAR: Regular rate and rhythm without murmurs, gallops, or rubs. RESPIRATORY: Clear to auscultation. Breath sounds equal bilaterally. No wheezes , rales, or rhonchi. GASTROINTESTINAL: Abdomen soft, non-tender, nondistended. No hepato-splenomegaly , or palpable masses. No guarding. MUSCULOSKELETAL: Extremities without clubbing, cyanosis, or edema. No joint tenderness, effusion, or edema noted. Right sided paraspinal muscles nontender to palpation. Nontender along palpation of spinous processes. NEUROLOGICAL: Awake and alert. Able to move all extremities. No focal neurologic findings appreciated on exam. Normal speech. Medications and IVs Current Medications Medications (Trade) Dose Ordered Sig/Ammon Route Start Time Stop Time Status Last Admin (Plavix) 75 mg DAILY PO 12/28/16 09:45 12/31/16 08:44 (Synthroid) 100 mcg DAILY@0600 PO 12/28/16 09:45 12/31/16 05:57 (Theragran) 1 tab DAILY PO 12/28/16 09:45 12/31/16 08:44 (KlonoPIN) 0.5 mg Q12HR PO 12/28/16 21:00 12/31/16 08:44 (Imdur) 90 mg DAILY PO 12/28/16 17:30 12/31/16 08:44 (Flagyl) 500 mg Q8HR PO 12/28/16 22:00 12/31/16 05:56 (Nitrostat Sl) 0.4 mg Q5M PRN SL 12/29/16 12:30 (Colace) 100 mg BID PO 12/29/16 12:30 12/31/16 08:44 (Effexor Xr) 225 mg DAILY PO 12/30/16 09:00 12/31/16 08:44 (Miralax) 17 gm DAILY PO 12/31/16 09:00 (Milk Of Magnesia Liq) 30 ml DAILY PRN PO 12/30/16 14:00 A/P Assessment and Plan 71-year-old female with a PMHX of Anxiety, Depression, HTN, Hyperlipidemia, CAD s/p previous CABG, Right CEA and Chronic Back Pain who was brought to the ER by EMS under [place] Act after Suicide Attempt w/ Intentional Overdose by taking 200 pills of Valium 10mg who has been admitted to psychiatric unit. Hospitalist services have been requested to assist with medical management. Depression/Anxiety/Suicide attempt with Intentional Overdose Management per psychiatric team Recent diagnosis of C Diff infection Reportedly outpatient laboratory told the patient's that she is positive for C. difficile. Unable to verify positive results. Will order C diff PCR - unable test due to no specimen Continue Flagyl 500mg po q 8h Asymptomatic at present, patient denies any fever, chills, N/V, abdominal pain or diarrhea. In fact, patient complaining of constipation. Requested nursing staff contact [facility] to verify C Diff was positive - confirmed with [facility] [place] has been contacted but no response as of yet Constipation on Miralax and stool softeners - Miralax not given today (+)small hard stool MOM prn s/p Fall with complaints of right sided low back pain Denies any LOC, syncope, headache, dizziness, palpitations, chest pain or SOB. No head injury. CT head without any acute intracranial findings. Resolved - no complaints of back pain Tspine xray personally reviewed - shows no fracture or other osseous abnormality Lspine xray personally reviewed - shows L1 compression frx of indeterminate age. Patient confirms h/o L1 compression fracture from years ago. Vitamin D level low Vitamin D deficiency Begin oral repletion Will need to follow up with PCP for repeat level in 4 to 6 weeks HTN/CAD/Previous CABG/PAD s/p right CEA episode of chest pain, resolved after being given Klonopin. Asymptomatic presently. continue with Plavix continue with Isosorbide Add nitroglycerin when necessary chest pain Patient unable to tolerate aspirin and statins Baseline EKG - NSR, nonspecific T wave changes Hypothyroidism Continue with Levothyroxine TSH 4.050 Free T4 1.13 TSH elevation likely due to recent illness/hospitalization recommend repeat labs in 6 weeks with PCP Urinary urgency, frequency and incontinence UA negative Hypernatremia likely secondary to dehydration resolved BOBBY avoid nephrotoxic agents encourage po intake creatinine 0.83 --> 1.28 --> 0.99 resolved Dyslipidemia TG 314, TC 243, LDL 148, HDL 32 not on any statin patient would benefit from moderate to high intensity statin per ASCVD risk calculator Discussed with patient today, she is been tried on multiple statins at varying doses and is unable to tolerate DVT Prophylaxis Encourage ambulation Discussed with nursing staff, patient and Dr. Oswald. Delia Pickering December 31, 2016 13:52
[2016-12-31] MEDS ORDERED: MAGNESIUM HYDROXIDE SUSP 30 ML CUP PO PRN (14:00)
[2016-12-31] MEDS: CHOLECALCIFEROL (VIT D3) 1000 UNIT TAB PO SCH (14:58)
[2016-12-31 18:27] VITALS: BP 134/75; PULSE 76; O2SAT 98
[2017-01-01] VITALS: BP 126/66; PULSE 73; RESP 18; TEMP 97.4; O2SAT 97
[2017-01-01 05:20] VITALS: BP 126/66; PULSE 73; RESP 18; TEMP 97.4; O2SAT 97
[2017-01-01] MEDS: LEVOTHYROXINE SODIUM 100 MCG TAB PO SCH (06:00)
[2017-01-01] MEDS: metroNIDAZOLE 500 MG TAB PO SCH ×2 (06:00→14:17)
[2017-01-01] MEDS: POLYETHYLENE GLYCOL 17 GM PKG PO SCH ×2 (09:00)
[2017-01-01] MEDS: ISOSORBIDE MONONITRATE 30 MG TAB PO SCH (09:00)
[2017-01-01] MEDS: CHOLECALCIFEROL (VIT D3) 1000 UNIT TAB PO SCH (09:20)
[2017-01-01] MEDS: CLOPIDOGREL 75 MG TAB PO SCH (09:20)
[2017-01-01] MEDS: VENLAFAXINE HCL XR 75 MG CAP PO SCH (09:20)
[2017-01-01] MEDS: MULTIVITAMIN TAB PO SCH (09:20)
[2017-01-01] MEDS: clonazePAM 0.5 MG TAB PO SCH (09:20)
[2017-01-01] MEDS: DOCUSATE SODIUM 100 MG CAP PO SCH (09:21)
[2017-01-01] MEDS ORDERED: METR-1 PO ×2 (16:46→17:57)
--- NOTE | 2017-01-01 17:01 | HHI.PR ---
Subjective Remarks Follow-up visit anxiety, depression, HTN, CAD with previous CABG, right CEA and chronic back pain, C. difficile. Patient seen and examined today. States she is doing well. She's been seen ambulating the hallway with walker use. Denies any diarrhea states that her problem was actually constipation and the nurses were giving her laxatives. Finally she had bowel movements but it is formed. IVETH Rico verified information. Denies pain and discomfort. Denies SOB/ dyspnea. Denies chest pain, palpitations, headaches, dizziness. Denies fevers, chills, n/v/d. Denies hematuria, dysuria. Objective Vitals Vital Signs Date Time Temp Pulse Resp B/P Pulse Ox O2 Delivery O2 Flow Rate FiO2 01/01/17 05:20 97.4 73 18 126/66 97 01/01/17 00:00 97.4 73 18 126/66 97 12/31/16 18:27 76 134/75 98 I/O 12/31/16 12/31/16 12/31/16 01/01/17 01/01/17 01/01/17 07:00 15:00 23:00 07:00 15:00 23:00 Output Total 3 ml Balance -3 ml Output Urine Total 3 ml # Voids 2 # Bowel Movements 3 Result Diagram: 12/28/16 1212 12/31/16 1153 Imaging Last Impressions Thoracic Spine X-Ray 12/30/16 0000 Signed Impressions: Service Date/Time: Friday, December 30, 2016 21:05 - CONCLUSION: No acute disease. Watson Stoddard Jr., MD Lumbar Spine X-Ray 12/30/16 0000 Signed Impressions: Service Date/Time: Friday, December 30, 2016 21:06 - CONCLUSION: Age- indeterminate L1 compression deformity. Watson Stoddard Jr., MD Head CT 12/30/16 0000 Signed Impressions: Service Date/Time: Friday, December 30, 2016 11:15 - CONCLUSION: 1. No acute intracranial abnormality. 2. Remote infarcts. Paul Plunkett MD Objective Remarks GENERAL: This is a well-nourished, well-developed patient, in no apparent distress. SKIN: Warm and dry. HEENT: Normocephalic. Pupils equal round and reactive. Nose without bleeding. Airway patent. NECK: Trachea midline. No JVD. Supple. CARDIOVASCULAR: Regular rate and rhythm without murmurs, gallops, or rubs. RESPIRATORY: Clear to auscultation. Breath sounds equal bilaterally. No wheezes , rales, or rhonchi. GASTROINTESTINAL: Abdomen soft, non-tender, nondistended. Bowel Sounds normoactive x4. : Voiding without difficulty. MUSCULOSKELETAL: Extremities without clubbing, cyanosis, or edema. NEUROLOGICAL: Awake and alert. Oriented to person, place, time. Moves all extremities. Normal speech. A/P Problem List: (1) Major depressive disorder, recurrent severe without psychotic features ICD Code: F33.2 Status: Acute (2) Overdose ICD Code: T50.901A Status: Acute Assessment and Plan 71-year-old female with a PMHX of Anxiety, Depression, HTN, Hyperlipidemia, CAD s/p previous CABG, Right CEA and Chronic Back Pain who was brought to the ER by EMS under Richardson Act after Suicide Attempt w/ Intentional Overdose by taking 200 pills of Valium 10mg who has been admitted to psychiatric unit. Hospitalist services have been requested to assist with medical management. Depression/Anxiety/Suicide attempt with Intentional Overdose Management per psychiatric team Recent diagnosis of C Diff infection Reportedly outpatient laboratory told the patient's that she is positive for C. difficile. Unable to verify positive results. Continue Flagyl 500mg po q 8h Asymptomatic at present, patient denies any fever, chills, N/V, abdominal pain or diarrhea. In fact, patient complaining of constipation. Unable to send specimen inpatient for C. difficile Requested nursing staff contact Mariusz to verify C Diff was positive - confirmed with IVETH Rico has been contacted unverified results Patient can be discontinued and Flagyl use based on Rx. Discuss with patient completed treatment. Constipation Had 4 BMs, formed. Continue with when necessary bowel regimen s/p Fall with complaints of right sided low back pain Denies any LOC, syncope, headache, dizziness, palpitations, chest pain or SOB. No head injury. CT head without any acute intracranial findings. Resolved - no complaints of back pain Tspine xray personally reviewed - shows no fracture or other osseous abnormality Lspine xray personally reviewed - shows L1 compression frx of indeterminate age. Patient confirms h/o L1 compression fracture from years ago. Vitamin D level low Vitamin D insufficiency Start supplementation vitamin D 3000 daily Will need to follow up with PCP for repeat level in 4 to 6 weeks HTN/CAD/Previous CABG/PAD s/p right CEA episode of chest pain, resolved after being given Klonopin. Asymptomatic presently. continue with Plavix continue with Isosorbide Add nitroglycerin when necessary chest pain Patient unable to tolerate aspirin and statins Baseline EKG - NSR, nonspecific T wave changes Hypothyroidism Continue with Levothyroxine TSH 4.050, Free T4 1.13 TSH elevation likely due to recent illness/hospitalization Recommend repeat labs in 6 weeks with PCP Urinary urgency, frequency and incontinence UA negative Hypernatremia likely secondary to dehydration resolved BOBBY avoid nephrotoxic agents encourage po intake creatinine 0.83 --> 1.28 --> 0.99 resolved Dyslipidemia TG 314, TC 243, LDL 148, HDL 32 not on any statin patient would benefit from moderate to high intensity statin per ASCVD risk calculator Discussed with patient today, she is been tried on multiple statins at varying doses and is unable to tolerate Recommend dietary changes and exercise. May benefit with Zetia, gemfibrozil or other cholesterol lowering agents to discuss with PCP as an outpatient DVT Prophylaxis Encourage ambulation Discussed with nursing staff, patient and Dr. Oswald. Maude from Hospitalist standpoint. Patient is medically cleared for discharge. Van Julio January 01, 2017 17:01
--- NOTE | 2017-01-01 17:55 | HHI.DS ---
Psychiatry Discharge Summary Inpatient Psychiatric care?: Yes Advance Directive: No Mental Health AdvanceDirective: No Health Care Proxy: No Admission Admission Date December 27, 2016 at 21:40 Admission Diagnosis: (1) Major depressive disorder, recurrent severe without psychotic features ICD Code: F33.2 Brief History The patient is a 71-year-old woman, domicile with her in [place], retired, with psychiatric history of depression, anxiety , about 4 previous psychiatric hospitalizations, last hospitalization was here at [facility] in 2010 under the care of Dr. Lofton, documentation was reviewed, 1 previous suicide attempt by overdosing with Tylenol, active outpatient care with Dr. Landaverde, she has been in Effexor 150 mg, Valium 10 mg daily, medical history of HTN, Hyperlipidemia, CAD and Chronic Back Pain who was brought to the ER by EMS under [place] Act after Suicide Attempt w/ Intentional Overdose. Per , pt reportedly took approx 200 pills of Valium 10mg earlier this afternoon, however he states he didn't actually see patient take them. On arrival, pt awake, conversive, normal O2 sat and normal vital signs. While in ER, pt states she took "a bottle and a half" of Valium in suicide attempt. CBC unremarkable. K+ 3.0, s/p replacement in ER. GFR 68. U/a negative. Urine Drug Screen positive for Benzo. Alcohol negative. Tylenol/Salicylate negative. On psychiatric evaluation today patient is too sedated to offer any meaningful information for the psychiatric assessment. However, her Stu Pelaez, at bedside was able to provide very useful collateral information. He says that the patient overdosed seriously with approximately 200 pills of Valium. He says that he controls her medication and she was recently prescribed with 130 pills of Valium, plus she had more than 30 left in another bottle. He doesn't think that she is abusing her medication, and she takes them as prescribed. He says that the patient has been depressed in the last months, he cannot identify a reason for this depression. He says that she has been very sad, pessimistic, melancholic, catastrophic. He cannot identify an acute stressor or a reason for the patient to be this way. He says that she recently has been repeating that she lost anton in the future. 12/28/2016 on psychiatric evaluation today patient reports feeling extremely anxious, very scared of being in a psychiatric unit. Patient says that she is also very sad "I'm thinking that I should by taking pills", patient says that she has been extremely overwhelmed in the last days, having frequent conflicts with her "and I feel that I am done already and there are no solutions for me". During the evaluation patient is tearful, seems to be melancholic, fragile and vulnerable. She reports suicidal ideation, but denies any plan and is able to contract for safety in the unit. Patient reports hopelessness, helplessness, decreased appetite, difficulty sleeping at night, generalized pessimism, low self-esteem, sensitivity to frustration and rejection. She is oriented 3, no attention deficit, no gross cognitive impairment present. Patient denies visual and auditory hallucinations. No agitation, no aggressive behavior present in the unit. 12/29/16 Above note dictated by Dr. Bourgeois reviewed and agreed with. Patient is 71- year-old white female admitted to Dr. Bourgeois service under the Richardson act. He should seen by me in [place] with nurse Pérez. Patient labile tearful sad and depressed. It appears she took a large overdose of Valium to the point which needed to be intubated to protect her airway and her respirations. The present time patient is markedly depressed with no insight into her disease. Dr. Bourgeois #first opinion petition supporting Richardson act. I agree. Patient meets criteria for involuntary psychiatric hospitalization under the Richardson act. Thus I will cosign second opinion petition supporting Richardson act Tobacco Use In Past 30 Days: No Tobacco Past 30 Days Alcohol Use: Never Hospital Course Participated in her care and was pleasant, compliant and cooperative throughout. She has demonstrated a remarkbly happy affect for the last two days and was very happy to be discharged. Medically cleared for dc accord to nurse. Results Blood Pressure 126 / 66 Vital Signs Date Time Temp Pulse Resp B/P Pulse Ox O2 Delivery O2 Flow Rate FiO2 01/01/17 05:20 97.4 73 18 126/66 97 Laboratory Tests Test 12/29/16 12/31/16 22:30 11:53 Urine Mucus FEW /lpf (OCC) Estimat Glomerular Filtration 56 ML/MIN (>89) Rate 25-Hydroxy Vitamin D Total 22.8 ng/ML (30-100) Laboratory Results Test 12/28/16 06:08 Hemoglobin A1c 5.6 % (4.3-6.0) Triglycerides Level 314 MG/DL (42-150) Cholesterol Level 243 MG/DL (120-200) LDL Cholesterol 148 MG/DL (0-99) HDL Cholesterol 32.0 MG/DL (40.0-60.0) Summary of Procedures none Imaging Last Impressions Thoracic Spine X-Ray 12/30/16 0000 Signed Impressions: Service Date/Time: Friday, December 30, 2016 21:05 - CONCLUSION: No acute disease. Watson Stoddard Jr., MD Lumbar Spine X-Ray 12/30/16 0000 Signed Impressions: Service Date/Time: Friday, December 30, 2016 21:06 - CONCLUSION: Age- indeterminate L1 compression deformity. Watson Stoddard Jr., MD Head CT 12/30/16 0000 Signed Impressions: Service Date/Time: Friday, December 30, 2016 11:15 - CONCLUSION: 1. No acute intracranial abnormality. 2. Remote infarcts. Paul Plunkett MD Pending results at discharge: No Medications # of Antipsychotic meds at D/C: 0 Approp Antipsych med options 1 - Minimum of three failed multiple trials of monotherapy. 2 - Documented plan to taper to monotherapy due to previous use of multiple meds OR cross-taper in progress at D/C. 3 - Documentation of augmentation of Clozapine. 4 - Justification other than those listed in allowable values 1-3, document here : Discharge Discharge Date: January 01, 2017 Discharge Diagnosis: (1) Major depressive disorder, recurrent severe without psychotic features Diagnosis: Principal ICD Code: F33.2 Mental Status Exam at Disch No SI, No HI, No psychoses. Cognition intact. Pt Condition on Discharge: Stable Discharge Disposition: Discharge Home Discharge Instructions Diet Instructions: As Tolerated, No Restrictions Activities you can perform: Regular-No Restrictions Discharge Time <= 30 minutes Discharge/Advance Care Plan Health Problems: (1) Major depressive disorder, recurrent severe without psychotic features Goals to promote your health * To prevent worsening of your condition and complications * To maintain your health at the optimal level Directions to meet your goals Take your medications as prescribed Follow your dietary instruction Follow activity as directed Keep your appointments as scheduled Take your immunizations and boosters as scheduled If your symptoms worsen call your PCP, if no PCP go to Urgent Care Center or Emergency Room For 24/7 questions related to your inpatient stay or results of tests pending at discharge, please contact Dr. Jackson Lofton at Smoking is Dangerous to Your Health. Avoid second hand smoking Jackson Lofton MD January 01, 2017 17:54
[2017-01-01] MEDS ORDERED: VENL75XR PO (17:56)
[2017-01-01 18:17] VITALS: BP 119/74; PULSE 74; RESP 19; TEMP 97.6; O2SAT 97
== END 2017-01-01 18:25 | disposition home or self-care (01) | DRG 885 ==
LOC: H4EA 21:40
PROVIDERS: ADMIT Psychiatry & Neurology Psychiatry; ATTEND Psychiatry & Neurology Psychiatry
DX: F33.2 Major depressive disorder, recurrent severe without psychotic features (principal); E87.0 Hyperosmolality and hypernatremia; N17.9 Acute kidney failure, unspecified; A04.7 Enterocolitis due to Clostridium difficile; E55.9 Vitamin D deficiency, unspecified; I25.810 Atherosclerosis of coronary artery bypass graft(s) without angina pectoris; F41.0 Panic disorder [episodic paroxysmal anxiety]; I10 Essential (primary) hypertension; E78.5 Hyperlipidemia, unspecified; E03.9 Hypothyroidism, unspecified; E86.0 Dehydration; Z95.1 Presence of aortocoronary bypass graft; K59.00 Constipation, unspecified; K04.7 Periapical abscess without sinus; T42.4X2A Poisoning by benzodiazepines, intentional self-harm, initial encounter; Z91.5 Personal history of self-harm; E87.6 Hypokalemia; I25.2 Old myocardial infarction; E78.00 Pure hypercholesterolemia, unspecified; G89.29 Other chronic pain; M54.9 Dorsalgia, unspecified; R19.7 Diarrhea, unspecified; Z79.02 Long term (current) use of antithrombotics/antiplatelets; Z91.030 Bee allergy status; Z88.1 Allergy status to other antibiotic agents; Z88.6 Allergy status to analgesic agent; Z88.0 Allergy status to penicillin; Z95.5 Presence of coronary angioplasty implant and graft
CPT/HCPCS: 70450; 72072; 72100; 74000; 80048; 80053; 80061; 80307; 81001; 82306; 83036; 83735; 84443; 85014; 85018; 85025; 85049; 85610; 85730; 93005; G0378; J3480; J7030

== ENCOUNTER 2017-01-03 10:42 | Emergency (ER) | payer MEDICARE, BC ==
[~2017-01-03] VITALS: Ht 162.6 cm; Wt 68.0 kg
[~2017-01-03 10:42] MED LIST changes: -DIAZ10TA PO; -DIAZ2TAB PO; -NYST1000 SWISH-SWAL; +VENL75XR PO
[2017-01-03 10:44] VITALS: BP 121/73; PULSE 87; RESP 22; TEMP 97.8; O2SAT 99
--- NOTE | 2017-01-03 11:22 | PD ---
HPI Chief Complaint: Back/ Neck Pain or Injury Time Seen by Provider: 11:18 Travel History International Travel<30 days: No Contact w/Intl Traveler<30days: No Traveled to known affect area: No History of Present Illness HPI 71-year-old female presents the emergency department with sudden onset thoracic back pain just below the right scapula which she states started suddenly after having a bowel movement this morning. Patient was concerned it could be her heart. Patient took 3 nitroglycerin this morning without real change. Patient denies fever, chills, nausea, vomiting, or other symptoms. Patient recently in the hospital for C. difficile. Patient states had a normal bowel movement this morning. Patient states the pain is worse with movement and cough. Patient does have a history of vertebral compression fracture of L1 in the past. Patient still has her gallbladder. She has no history of pancreatitis. She is not a heavy drinker. She denies shortness of breath. Patient has multiple allergies including aspirin, bee stings, clindamycin, diclofenac, erythromycin, ibuprofen, penicillin, and tetracycline. PFSH Past Medical History Hx Anticoagulant Therapy: Yes (plavix) Anxiety: Yes Depression: Yes Cardiac Catheterization: Yes (4 STENTS) Cardiovascular Problems: Yes (bypass, [place]) High Cholesterol: Yes Coronary Artery Disease: Yes Diabetes: No Diminished Hearing: No Hypertension: Yes (GENERALLY NOT HIGH, UNMEDICATED) Musculoskeletal: Yes (L1 COMPRESSION FX-SACRUM FX- FROM FALL) Psychiatric: Yes Myocardial Infarction: Yes (AT 40 YO) Thyroid Disease: Yes Tetanus Vaccination: > 5 Years Influenza Vaccination: Yes Menopausal: Yes : 3 Para: 3 Tubal Ligation: Yes (PRIOR TO HYSTERECTOMY) Past Surgical History Abdominal Surgery: Yes (HERNIA) Appendectomy: Yes Cardiac Surgery: Yes (CABG; CAROTIDS, RCA ) Coronary Stent: Yes (X4 09/07/07, 12/24/07, 05/2009) Eye Surgery: Yes (CATARACTS) Gynecologic Surgery: Yes (TUBAL;HYSTERECTOMY) Hysterectomy: Yes (APPROX 20+ YEARS AGO) Other Surgery: Yes (UMBILICAL HERNIA REPAIR) Social History Alcohol Use: Yes ("VERY LITTLE, ONCE A MONTH") Tobacco Use: No Substance Use: No Allergies-Medications (Allergen,Severity, Reaction): Coded Allergies: Aspirin (Verified Allergy, Severe, facial edema, 01/03/17) Clindamycin (Verified Allergy, Severe, cdiff, 01/03/17) Penicillin (Verified Allergy, Severe, facial and throat edema, 01/03/17) Bee Sting (Verified Adverse Reaction, Intermediate, Swelling, 01/03/17) Diclofenac (Verified Adverse Reaction, Intermediate, 01/03/17) Erythromycin (Verified Adverse Reaction, Intermediate, itch, 01/03/17) Ibuprofen (Verified Adverse Reaction, Intermediate, itch, 01/03/17) Tetracycline (Verified Adverse Reaction, Intermediate, itch, 01/03/17) Reported Meds & Prescriptions Reported Meds & Active Scripts Active Tramadol (Tramadol HCl) 50 Mg Tab 50 Mg PO Q6H PRN Miralax Powder (Polyethylene Glycol 3350 Powder) 17 Gm Powd 17 Gm PO DAILY Mix and dissolve one measuring cap-ful (17 grams) in water or juice. Ciprofloxacin (Ciprofloxacin HCl) 500 Mg Tab 500 Mg PO BID 7 Days Flagyl (Metronidazole) 500 Mg Tab 500 Mg PO Q8HR Reported Isosorbide Mononitrate ER (Isosorbide Mononitrate) 30 Mg Lelia 90 Mg PO DAILY Nitroglycerin SL (Nitroglycerin) 0.4 Mg Subl 0.4 Mg SL DIRECTED PRN ONE TABLET UNDER THE TONGUE NEEDED FOR CHEST PAIN, MAY REPEAT EVERY FIVE MINUTES FOR A TOTAL OF 3 DOSES OR CALL 911 IF NO RELIEF Venlafaxine ER 24 HR (Venlafaxine HCl) 150 Mg Cap 150 Mg PO DAILY Multiple Vitamin 1 Tab 1 Tab PO DAILY Levothyroxine (Levothyroxine Sodium) 100 Mcg Tab 100 Mcg PO DAILY Fexofenadine (Fexofenadine HCl) 180 Mg Tab 180 Mg PO DAILY Plavix (Clopidogrel Bisulfate) 75 Mg Tab 75 Mg PO DAILY Review of Systems Except as stated in HPI: all other systems reviewed are Neg General / Constitutional: No: Fever Eyes: No: Visual changes HENT: No: Headaches Cardiovascular: No: Chest Pain or Discomfort Respiratory: No: Shortness of Breath Gastrointestinal: No: Abdominal Pain Genitourinary: No: Dysuria Musculoskeletal: Positive: Arthralgias, Pain (see history present illness) Skin: No Rash Neurologic: No: Weakness Psychiatric: No: Depression Endocrine: No: Polydipsia Hematologic/Lymphatic: No: Easy Bruising Physical Exam Narrative GENERAL: Patient appears in moderate distress. SKIN: Warm and dry. Normal color. Normal turgor. No rash. No diaphoresis. HEAD: Atraumatic. Normocephalic. EYES: Pupils equal and round. No scleral icterus. No injection or drainage. ENT: No nasal bleeding or discharge. Mucous membranes pink and moist. Pharynx is clear. NECK: Trachea midline. No JVD. CARDIOVASCULAR: Regular rate and rhythm. No murmurs gallops or rubs. RESPIRATORY: No accessory muscle use. Clear to auscultation. Breath sounds equal bilaterally. GASTROINTESTINAL: Abdomen soft, non-tender, nondistended. Hepatic and splenic margins not palpable. No obvious CVA tenderness. MUSCULOSKELETAL: Extremities without clubbing, cyanosis, or edema. No obvious deformities. Patient has reproducible pain on the right middle lower thorax below the shoulder blade region on the right thoracic area. Muscle spasms noted. NEUROLOGICAL: Awake and alert. No obvious cranial nerve deficits. Motor grossly within normal limits. Five out of 5 muscle strength in the arms and legs. Normal speech. PSYCHIATRIC: Appropriate mood and affect; insight and judgment normal. Data Data Last Documented VS Vital Signs Date Time Temp Pulse Resp B/P Pulse Ox O2 Delivery O2 Flow Rate FiO2 01/03/17 13:44 80 18 125/79 98 Room Air 01/03/17 10:44 97.8 Orders Complete Blood Count With Diff (01/03/17 11:23) Comprehensive Metabolic Panel (01/03/17 11:23) Lipase (01/03/17 11:23) Prothrombin Time / Inr (Pt) (01/03/17 11:23) Act Partial Throm Time (Ptt) (01/03/17 11:23) Urinalysis - C+S If Indicated (01/03/17 11:23) Iv Access Insert/Monitor (01/03/17 11:23) Ecg Monitoring (01/03/17 11:23) Oximetry (01/03/17 11:23) Ondansetron Inj (Zofran Inj) (01/03/17 11:30) Sodium Chlor 0.9% 1000 Ml Inj (Ns 1000 M (01/03/17 11:23) Sodium Chloride 0.9% Flush (Ns Flush) (01/03/17 11:30) Electrocardiogram (01/03/17 11:23) Hydromorphone Pf Inj (Dilaudid Pf Inj) (01/03/17 11:30) Ct Abd/Pel W/O Iv Contrast (01/03/17 11:32) Urine Culture (01/03/17 11:47) Ciprofloxacin (Cipro) (01/03/17 13:00) Chest, Pa & Lat (01/03/17 ) Labs Laboratory Tests Test 01/03/17 01/03/17 11:15 11:47 White Blood Count 11.2 TH/MM3 Red Blood Count 4.71 MIL/MM3 Hemoglobin 14.0 GM/DL Hematocrit 40.3 % Mean Corpuscular Volume 85.5 FL Mean Corpuscular Hemoglobin 29.7 PG Mean Corpuscular Hemoglobin 34.8 % Concent Red Cell Distribution Width 13.8 % Platelet Count 316 TH/MM3 Mean Platelet Volume 8.5 FL Neutrophils (%) (Auto) 84.1 % Lymphocytes (%) (Auto) 9.0 % Monocytes (%) (Auto) 5.9 % Eosinophils (%) (Auto) 0.9 % Basophils (%) (Auto) 0.1 % Neutrophils # (Auto) 9.4 TH/MM3 Lymphocytes # (Auto) 1.0 TH/MM3 Monocytes # (Auto) 0.7 TH/MM3 Eosinophils # (Auto) 0.1 TH/MM3 Basophils # (Auto) 0.0 TH/MM3 CBC Comment DIFF FINAL Differential Comment Prothrombin Time 11.0 SEC Prothromb Time International 1.0 RATIO Ratio Activated Partial 28.5 SEC Thromboplast Time Sodium Level 136 MEQ/L Potassium Level 4.4 MEQ/L Chloride Level 102 MEQ/L Carbon Dioxide Level 26.4 MEQ/L Anion Gap 8 MEQ/L Blood Urea Nitrogen 10 MG/DL Creatinine 1.08 MG/DL Estimat Glomerular Filtration 50 ML/MIN Rate Random Glucose 116 MG/DL Calcium Level 8.7 MG/DL Total Bilirubin 0.5 MG/DL Aspartate Amino Transf 29 U/L (AST/SGOT) Alanine Aminotransferase 34 U/L (ALT/SGPT) Alkaline Phosphatase 121 U/L Total Protein 7.4 GM/DL Albumin 3.7 GM/DL Lipase 158 U/L Urine Color YELLOW Urine Turbidity CLEAR Urine pH 5.5 Urine Specific [place] 1.021 Urine Protein TRACE mg/dL Urine Glucose (UA) NEG mg/dL Urine Ketones NEG mg/dL Urine Occult Blood SMALL Urine Nitrite NEG Urine Bilirubin NEG Urine Urobilinogen LESS THAN 2.0 MG/DL Urine Leukocyte Esterase TRACE Urine RBC 3 /hpf Urine WBC 14 /hpf Urine Squamous Epithelial <1 /hpf Cells Urine Hyaline Casts 8 /lpf Urine Mucus FEW /lpf Microscopic Urinalysis Comment CULTURE INDICATED MDM Medical Decision Making Medical Screen Exam Complete: Yes Emergency Medical Condition: Yes Medical Record Reviewed: Yes Differential Diagnosis Thoracic wall pain. Muscle skeletal pain. Pneumonia. AAA. Renal colic. Pancreatitis. Urinary tract infection. Narrative Course Patient is in pain but medically stable at time of exam. EKG, and CT of the abdomen and pelvis is without oral or IV contrast ordered. Labs ordered including CBC, CMP, cardiac panel, coagulation studies, lipase, and urinalysis. Patient is given 1 mg hydromorphone IV as well as 1 g Zofran IV. CBC shows slightly elevated leukocytosis of 11.2. CMP is unremarkable with a creatinine of 1.08, random glucose of 116, an alkaline phosphatase of 121. Urinalysis shows small amount of occult blood, trace of leukocyte esterase trace , he has 14 wbc's per high-power field and culture is placed. CT shows thickening of the distal esophagus which is nonspecific. There are no changes in the liver or kidneys suggestive of obstruction. There is a large amount of stool in the colon without signs of obstruction per radiologist. Chest x-ray shows no acute findings. EKG shows sinus rhythm with no acute changes seen. Patient is discussed with and seen by Dr. Verma. Patient is felt to be stable to be discharged home. Patient was treated with Cipro 500 mg twice a day 7 days. Patient given MiraLAX for constipation as well. Patient is given tramadol 50 mg one every 6 hours when necessary pain. #20. Patient is to follow with her primary care physician. Urine culture is pending. Diagnosis Primary Impression: Urinary tract infection Qualified Code: N39.0 - Urinary tract infection without hematuria, site unspecified Additional Impressions: Acute upper back pain Constipation Qualified Code: K59.00 - Constipation, unspecified constipation type Referrals: Primary Care Physician Patient Instructions: Constipation (ED), Dysuria (ED), General Instructions Additional Instructions: Patient is felt to be stable to be discharged home. Patient was treated with Cipro 500 mg twice a day 7 days. Patient given MiraLAX for constipation as well. Patient is given tramadol 50 mg one every 6 hours when necessary pain. #20. Patient is to follow with her primary care physician. Urine culture is pending. Med/Other Pt SpecificInfo: Prescription(s) given Scripts Tramadol 50 Mg Tab50 Mg PO Q6H PRN (PAIN) #20 TAB Prov:Kenisha Verma MD 01/03/17 Polyethylene Glycol 3350 Powder (Miralax Powder)17 Gm Powd17 Gm PO DAILY #1 CAN Ref 0 Mix and dissolve one measuring cap-ful (17 grams) in water or juice. Prov:Kenisha Verma MD 01/03/17 Ciprofloxacin 500 Mg Tyb376 Mg PO BID 7 Days Ref 0 Prov:Kenisha Verma MD 01/03/17 Disposition: 01 DISCHARGE HOME Condition: Stable Vito Atkins January 03, 2017 11:22
[2017-01-03] MEDS ORDERED: SODIUM CHLOR 0.9% 1000 ML INJ 1,000 ML IV SCH (11:23)
[2017-01-03] MEDS ORDERED: SODIUM CHLORIDE 0.9% FLUSH 10 ML FLUSH IV FLUSH PRN (11:30)
[2017-01-03] MEDS ORDERED: ONDANSETRON HCL 4 MG/2 ML VIAL IVP ONE (11:30)
[2017-01-03] MEDS ORDERED: HYDROmorphone HCL PF 1 MG/ML VIAL IVS ONE (11:30)
[2017-01-03 11:40] LABS: AUTOMATED NEUTROPHIL # 9.4 TH/MM3 (1.8-7.7); BASOPHIL % 0.1 % (0.0-2.0); EOSINOPHIL # 0.1 TH/MM3 (0-0.4); EOSINOPHIL % 0.9 % (0.0-4.0); HEMATOCRIT 40.3 % (35.0-46.0); HEMO FLAGS DIFF FINAL; MEAN CELL VOLUME 85.5 FL (80.0-100.0); MEAN CORPUSCULAR HEMOGLOBIN 29.7 PG (27.0-34.0); MEAN CORPUSCULAR HGB CONC 34.8 % (32.0-36.0); MONO % 5.9 % (0.0-8.0); NEUT % 84.1 % (16.0-70.0); PLATELET COUNT 316 TH/MM3 (150-450); RED BLOOD COUNT 4.71 MIL/MM3 (4.00-5.30); RED CELL DISTRIBUTION WIDTH 13.8 % (11.6-17.2); WHITE BLOOD COUNT 11.2 TH/MM3 (4.0-11.0)
[2017-01-03 11:45] LABS: APTT (PATIENT) 28.5 SEC (24.3-30.1)
[2017-01-03 12:09] LABS: ALKALINE PHOSPHATASE 121 U/L (45-117); TOTAL BILIRUBIN ADULT 0.5 MG/DL (0.2-1.0)
[2017-01-03 12:14] LABS: BLOOD, URINE SMALL (NEG); COMMENT (UR) CULTURE INDICATED; CULTURE IF INDICATED CULTURE INDICATED; GLUCOSE,URINE NEG (NEG); HYALINE CAST, URINE 8 /lpf (RARE); KETONE, URINE NEG (NEG); MUCUS URINE FEW /lpf (OCC); NITRITE,URINE NEG (NEG); PH, URINE 5.5 (5.0-8.5); SQUAMOUS EPITHELIAL CELL URINE <1 /hpf (0-5); URINE COLOR YELLOW (YELLW/STRAW)
[2017-01-03 12:20] LABS: ALT (GPT) 34 U/L (10-53); ANION GAP 8 MEQ/L (5-15); AST (GOT) 29 U/L (15-37); BICARBONATE 26.4 MEQ/L (21.0-32.0); BLOOD UREA NITROGEN 10 MG/DL (7-18); CHLORIDE 102 MEQ/L (98-107); GLOMERULAR FILTRATION RATE 50 ML/MIN (>89); POTASSIUM 4.4 MEQ/L (3.5-5.1); SODIUM (NA) 136 MEQ/L (136-145)
--- NOTE | 2017-01-03 12:45 | RADRPT ---
EXAM DATE/TIME: 01/03/2017 11:57 [facility] COMPARISON: No previous studies available for comparison. INDICATIONS : Right flank pain since last night ORAL CONTRAST: No oral contrast ingested. RADIATION DOSE: 7.39 CTDIvol (mGy) MEDICAL HISTORY : Hypertension. Cardiovascular disease SURGICAL HISTORY : Hysterectomy. ENCOUNTER: Initial ACUITY: 1 day PAIN SCALE: 7/10 LOCATION: Right flank TECHNIQUE: Volumetric scanning of the abdomen and pelvis was performed. Using automated exposure control and ad justment of the mA and/or kV according to patient size, radiation dose was kept as low as reasonably achievable to obtain optimal diagnostic quality images. FINDINGS: The liver, spleen, pancreas and adrenal glands are normal for a non-contrast CT examination. The pat ient does have a 1-2 mm non-obstructing left renal stone seen at the superior lateral collecting syst em. There is a 1 cm hyper dense mass seen at the superior lateral aspect of the left kidney. This i s nonspecific. It likely represents a hemorrhagic or proteinaceous cyst. The right kidney is unrema rkable. No hydronephrosis identified. There is thickening of the distal esophagus. This is nonspecific. Some degree of a hiatal hernia ma y contribute to this. It does appear that the ascending colon is distended measuring up to 9 cm in d iameter. There is a moderate amount of stool seen throughout the colon. The left side of the colon including the descending and sigmoid portions of the colon are relatively decompressed without signif icant amount of stool. Scattered atherosclerotic calcifications are seen throughout the arterial system. No aneurysm is see n. No pelvic masses are seen. The patient appears to be status post hysterectomy. The bladder is n ot distended. There is minimal amount of flat protruding into the upper inguinal canals bilaterally. No bowel is seen in the inguinal canal regions. The lung bases are clear. There is compressive changes with a concave deformity at the superior aspe ct of the L1 vertebral body. This is likely chronic. An acute component is not clearly identified i n this CT examination. The remaining bony structures are unremarkable. CONCLUSION: 1. Distention of the right side of the colon with the ascending colon measuring up to 9 cm. There i s stool seen throughout the right side of the colon and transverse colon. The left side of the colon is decompressed without significant stool within it. 2. Tiny non-obstructing left renal stone. 3. Thickening of the distal esophagus versus some thickening of a hiatal hernia. Guillaume Varela MD on January 03, 2017 at 12:26 Board Certified Radiologist. This report was verified electronically.
[2017-01-03] MEDS ORDERED: MIRA3350 PO (12:53)
[2017-01-03] MEDS ORDERED: CIPR500T2 PO (12:53)
[2017-01-03] MEDS ORDERED: TRAM50TA PO (12:59)
[2017-01-03] MEDS ORDERED: CIPROFLOXACIN 500 MG TAB PO ONE (13:00)
[2017-01-03 13:39] VITALS: RESP 18; O2SAT 98
[2017-01-03 13:44] VITALS: BP 125/79; PULSE 80; RESP 18; O2SAT 98
--- NOTE | 2017-01-03 13:50 | RADRPT ---
EXAM DATE/TIME: 01/03/2017 13:37 [facility] COMPARISON: No previous studies available for comparison. INDICATIONS : Back pain. MEDICAL HISTORY : Myocardial infarction. SURGICAL HISTORY : CABG. stents x4, ENCOUNTER: Initial ACUITY: 1 day PAIN SCORE: 0/10 LOCATION: Bilateral chest FINDINGS: PA and lateral views of the chest demonstrate the lungs to be symmetrically aerated without evidence of mass, infiltrate or effusion. There is chronic interstitial changes bilaterally. The heart size is within normal limits. There is evidence of previous cardiothoracic surgery. The bony structures are grossly intact. CONCLUSION: No acute intrathoracic disease. Reinier Vargas MD on January 03, 2017 at 13:47 Board Certified Radiologist. This report was verified electronically.
[2017-01-03 14:08] VITALS: RESP 16
--- NOTE | 2017-01-03 14:10 | PD ---
Physical Exam Narrative GENERAL: Well-nourished, well-developed patient. SKIN: Warm and dry. HEAD: Normocephalic and atraumatic. EYES: No injection or drainage. ENT: No nasal drainage noted. NECK: Supple, trachea midline. CARDIOVASCULAR: Regular rate and rhythm RESPIRATORY: Breath sounds equal bilaterally. No accessory muscle use. GASTROINTESTINAL: Abdomen soft, non-tender, nondistended. EXTREMITIES: No edema. BACK: Nontender without obvious deformity in midline, ttp to right lumbar paraspinal on right on my exam. NEUROLOGICAL: Awake and alert. Motor and sensory grossly within normal limits. Normal speech. Data Data Last Documented VS Vital Signs Date Time Temp Pulse Resp B/P Pulse Ox O2 Delivery O2 Flow Rate FiO2 01/03/17 14:08 16 01/03/17 13:44 80 125/79 98 Room Air 01/03/17 10:44 97.8 Orders Complete Blood Count With Diff (01/03/17 11:23) Comprehensive Metabolic Panel (01/03/17 11:23) Lipase (01/03/17 11:23) Prothrombin Time / Inr (Pt) (01/03/17 11:23) Act Partial Throm Time (Ptt) (01/03/17 11:23) Urinalysis - C+S If Indicated (01/03/17 11:23) Iv Access Insert/Monitor (01/03/17 11:23) Ecg Monitoring (01/03/17 11:23) Oximetry (01/03/17 11:23) Ondansetron Inj (Zofran Inj) (01/03/17 11:30) Sodium Chlor 0.9% 1000 Ml Inj (Ns 1000 M (01/03/17 11:23) Sodium Chloride 0.9% Flush (Ns Flush) (01/03/17 11:30) Electrocardiogram (01/03/17 11:23) Hydromorphone Pf Inj (Dilaudid Pf Inj) (01/03/17 11:30) Ct Abd/Pel W/O Iv Contrast (01/03/17 11:32) Urine Culture (01/03/17 11:47) Ciprofloxacin (Cipro) (01/03/17 13:00) Chest, Pa & Lat (01/03/17 ) Labs Laboratory Tests Test 01/03/17 01/03/17 11:15 11:47 White Blood Count 11.2 TH/MM3 Red Blood Count 4.71 MIL/MM3 Hemoglobin 14.0 GM/DL Hematocrit 40.3 % Mean Corpuscular Volume 85.5 FL Mean Corpuscular Hemoglobin 29.7 PG Mean Corpuscular Hemoglobin 34.8 % Concent Red Cell Distribution Width 13.8 % Platelet Count 316 TH/MM3 Mean Platelet Volume 8.5 FL Neutrophils (%) (Auto) 84.1 % Lymphocytes (%) (Auto) 9.0 % Monocytes (%) (Auto) 5.9 % Eosinophils (%) (Auto) 0.9 % Basophils (%) (Auto) 0.1 % Neutrophils # (Auto) 9.4 TH/MM3 Lymphocytes # (Auto) 1.0 TH/MM3 Monocytes # (Auto) 0.7 TH/MM3 Eosinophils # (Auto) 0.1 TH/MM3 Basophils # (Auto) 0.0 TH/MM3 CBC Comment DIFF FINAL Differential Comment Prothrombin Time 11.0 SEC Prothromb Time International 1.0 RATIO Ratio Activated Partial 28.5 SEC Thromboplast Time Sodium Level 136 MEQ/L Potassium Level 4.4 MEQ/L Chloride Level 102 MEQ/L Carbon Dioxide Level 26.4 MEQ/L Anion Gap 8 MEQ/L Blood Urea Nitrogen 10 MG/DL Creatinine 1.08 MG/DL Estimat Glomerular Filtration 50 ML/MIN Rate Random Glucose 116 MG/DL Calcium Level 8.7 MG/DL Total Bilirubin 0.5 MG/DL Aspartate Amino Transf 29 U/L (AST/SGOT) Alanine Aminotransferase 34 U/L (ALT/SGPT) Alkaline Phosphatase 121 U/L Total Protein 7.4 GM/DL Albumin 3.7 GM/DL Lipase 158 U/L Urine Color YELLOW Urine Turbidity CLEAR Urine pH 5.5 Urine Specific [place] 1.021 Urine Protein TRACE mg/dL Urine Glucose (UA) NEG mg/dL Urine Ketones NEG mg/dL Urine Occult Blood SMALL Urine Nitrite NEG Urine Bilirubin NEG Urine Urobilinogen LESS THAN 2.0 MG/DL Urine Leukocyte Esterase TRACE Urine RBC 3 /hpf Urine WBC 14 /hpf Urine Squamous Epithelial <1 /hpf Cells Urine Hyaline Casts 8 /lpf Urine Mucus FEW /lpf Microscopic Urinalysis Comment CULTURE INDICATED MDM Medical Record Reviewed: Yes (recent admit noted) Supervised Visit with [facility]: Yes Interpretation(s) CBC & BMP Diagram 01/03/17 11:15 Last 24 hours Impressions Chest X-Ray 01/03/17 0000 Signed Impressions: Service Date/Time: Tuesday, January 03, 2017 13:37 - CONCLUSION: No acute intrathoracic disease. Reinier Vargas MD EKG is unchanged Patient given copy of CT abdomen pelvis to follow up hiatal hernia and thickened changes, informed of constipation with dilation without obstruction Narrative Course I, Dr. rocha, have reviewed the advance practice practitioner's documentation and am in agreement, met with the patient face to face, made the diagnosis, and the medical decision making was done by me. *My assessment and Findings: 71-year-old female notes right sided back pain that is been present for the past couple of days. She states she tried nitroglycerin at home although this didn't feel like her typical heart symptoms just to see if that would help and it did not. She states that she had a heart catheterization 2 months ago that had no acute findings other than her chronic findings. She states that she has no other symptoms. Workup reveals mild urinary tract infection and constipation. Patient agrees to antibiotic and over -the-counter pain control with close primary follow-up. Diagnosis Primary Impression: Urinary tract infection Qualified Code: N39.0 - Urinary tract infection without hematuria, site unspecified Additional Impressions: Acute upper back pain Constipation Qualified Code: K59.00 - Constipation, unspecified constipation type Referrals: Primary Care Physician 1 day Patient Instructions: General Instructions, Constipation (ED), Dysuria (ED) Departure Forms: Tests/Procedures Additional Instruction: Patient is to follow with her primary care physician. Urine culture is pending. tylenol as needed Med/Other Pt SpecificInfo: Prescription(s) given Scripts Polyethylene Glycol 3350 Powder (Miralax Powder)17 Gm Powd17 Gm PO DAILY #1 CAN Ref 0 Mix and dissolve one measuring cap-ful (17 grams) in water or juice. Prov:Kenisha Rocha MD 01/03/17 Ciprofloxacin 500 Mg [id number] Mg PO BID 7 Days Ref 0 Prov:Kenisha Rocha MD 01/03/17 Disposition: 01 DISCHARGE HOME Condition: Stable Kenisha Rocha MD January 03, 2017 14:10
--- NOTE | 2017-01-04 09:37 | EKG ---
Date Performed: 01/03/2017 Time Performed: 13:37:25 PTAGE: 71 years EKG: Sinus rhythm LOW QRS VOLTAGE IN PRECORDIAL LEADS ANTEROSEPTAL MYOCARDIAL INFARCTION ABNORMAL ECG PREVIOUS TRACING : 12/29/2016 14.34 DOCTOR: Markel Manzano Interpretating Date/Time 01/04/2017 09:36:18
== END 2017-01-03 14:41 | disposition home or self-care (01) ==
LOC: NEPC 10:42
DX: N39.0 Urinary tract infection, site not specified (principal); K59.00 Constipation, unspecified; M54.6 Pain in thoracic spine; I25.2 Old myocardial infarction; I25.10 Atherosclerotic heart disease of native coronary artery without angina pectoris; R94.31 Abnormal electrocardiogram [ECG] [EKG]; Z95.1 Presence of aortocoronary bypass graft; Z79.02 Long term (current) use of antithrombotics/antiplatelets; Z79.899 Other long term (current) drug therapy
CPT/HCPCS: 71020; 74176; 80053; 81001; 83690; 85025; 85610; 85730; 87086; 93005; 96361; 96374; 96375; 99285; J1170; J2405; J7030